=== PATIENT | female | born 1950 | race Hispanic/Latino ===

== ENCOUNTER 2017-03-04 08:57 | Emergency (ER) | payer MEDICARE, OTHER ==
[~2017-03-04] VITALS: Ht 144.8 cm; Wt 70.8 kg
[~2017-03-04 08:57] MED LIST: ALENDRONATE70 MG PO; ALPHAGAN5 ML OP; AMLODIPINE5 MG PO; CEPHALEXIN500 M1 OR; CIPROFLOXACN500 MG PO; EC-81 ASPIRIN81 MG OR; FLUOXETINE10 M2 PO; FLUOXETINE10 M3 PO; FOSAMAX70 MG OR; FOSAMAX70 MG PO; GLUCOMETER; HUMULIN 70/30 SC; HYDROCHLOROT25 MG PO; INSULIN SC; LANCETS SC; LANTUS SOLOSTAR SC; LANTUS100 MG/ML SC; LISINOP/HCTZ1 TA1 PO; LISINOPRIL20 MG PO; LORTAB5 PO; LYRICA100 MG PO; LYRICA50 MG PO; MEDDOSEPAK OR; MEDDOSEPAK PO; METFORMIN500 MG PO; METFORMIN850 MG PO; NEURONTIN100 MG PO; NEURONTIN300 MG OR; NOVOLIN R IJ; PAXIL CR12.5 MG OR; PERCOCET 5/321 COMBO; PREDNISONE10 MG PO; PROZAC40 MG PO; QVAR80 MCG IN; RELION 70/30 SC; RISPERDAL3 MG PO; ROBITUSS13 OR; ROBITUSSIN AC10 ML PO; SIMVASTATIN40 MG PO; SYMBICORT1 AE1 IN; TEST STRIPS SC; TIMOLOL 0.5%5 ML OP; ULTRAM50 MG PO; VENTOLIN HFA IN; XALATAN 0.005%2.5 ML OP; [UNRECOGNIZED DRUG - OTHER]
[2017-03-04] MEDS ORDERED: MEDDOSEPAK PO (09:42)
[2017-03-04] MEDS ORDERED: DOXYCYC MONO100 M2 PO (09:42)
[2017-03-04] MEDS ORDERED: BENADRYL 50MG C50 MG PO (09:42)
[2017-03-04 09:49] VITALS: BP 151/65
== END 2017-03-04 09:58 | disposition home or self-care (01) ==
LOC: ED 08:57
DX: L50.9 Urticaria, unspecified (principal)

== ENCOUNTER 2018-03-22 14:56 | Emergency (ER) | payer MEDICARE, OTHER ==
[~2018-03-22] VITALS: Ht 144.8 cm; Wt 55.0 kg
[~2018-03-22 14:56] MED LIST changes: +BENADRYL 50MG C50 MG PO; +DOXYCYC MONO100 M2 PO; -NOVOLIN R IJ; +NOVOLIN R100 UNIT/M SC
[2018-03-22] MEDS ORDERED: LANTUS100 UNIT/M SC (15:24)
[2018-03-22 15:35] LABS: HEMATOCRIT 35.4 % (37.0-47.0); IMMATURE GRANULOCYTES 0.6 % (0.0-5.0); MEAN CELL VOLUME 85.1 fL CALC (80.0-100.0); MEAN CORPUSCULAR HGB 28.8 pG CALC (26.0-32.0); MEAN CORPUSCULAR HGB CONC 33.9 g/L CALC (32.0-36.0); NEUT# 7.57 thou/uL (2.00-7.15); RED BLOOD COUNT 4.16 mill/uL (4.20-5.60); RED CELL DISTRI WIDTH 13.4 % (11.5-15.5)
[2018-03-22 15:54] LABS: ALBUMIN 3.7 g/dL (3.2-5.0); ALKALINE PHOSPHATASE 70 u/l (38-126); ANION GAP 14 (6-22 (CALC)); BILIRUBIN, TOTAL 0.3 mg/dL (0.0-1.4); BUN 19 mg/dL (8-23); BUN/CREATININE RATIO 17 (12-20 (CALC)); CARBON DIOXIDE 22 mmol/l (22-30); CHLORIDE 105 mmol/l (95-108); CREATININE 1.1 mg/dL (0.5-1.0); GFR 50 ML/MIN (>=60 (CALC)); GFR FOR AFR.AMER. 60 ML/MIN (>=60 (CALC)); POTASSIUM 3.2 mmol/l (3.5-5.1); SGOT/AST 33 u/l (9-36); SGPT/ALT 22 u/l (11-66); SODIUM 138 mmol/l (137-146); TOTAL PROTEIN 6.4 g/dL (6.3-8.2)
[2018-03-22 16:33] LABS: URINE BILIRUBIN - DIPSTICK NEGATIVE (NEGATIVE); URINE BLOOD DIPSTICK SMALL (NEGATIVE); URINE COLOR YELLOW; URINE GLUCOSE - DIPSTICK >=1000 mg/dL (NEGATIVE); URINE KETONE NEGATIVE (NEGATIVE); URINE PROTEIN - DIPSTICK 30 mg/dL (NEG-TRACE); URINE SPECIFIC GRAVITY 1.015; URINE UROBILINOGEN - DIPSTICK 0.2 E.U./dL (0.2)
[2018-03-22 16:40] LABS: URINE CLARITY CLOUDY; URINE LEUK ESTERASE MODERATE (NEGATIVE); URINE NITRITE - DIPSTICK POSITIVE (Negative)
[2018-03-22 16:42] LABS: URINE BACTERIA MODERATE hpf; URINE SQUAMOUS EPITHELIAL CELL FEW EPI/hpf (0-FEW); URINE WBC >100 WBC/hpf (0-5)
[2018-03-22] MEDS ORDERED: BACTRIM DS1 TAB PO (16:50)
[2018-03-22 17:10] VITALS: BP 103/55
== END 2018-03-22 17:10 | disposition home or self-care (01) ==
LOC: ED 14:56 → EDBD 14:56 → ED 15:14
PROVIDERS: Family Medicine
DX: E11.649 Type 2 diabetes mellitus with hypoglycemia without coma (principal); N30.90 Cystitis, unspecified without hematuria; B96.20 Unspecified Escherichia coli [E. coli] as the cause of diseases classified elsewhere; I10 Essential (primary) hypertension; M79.7 Fibromyalgia; E11.40 Type 2 diabetes mellitus with diabetic neuropathy, unspecified; M81.0 Age-related osteoporosis without current pathological fracture; F17.210 Nicotine dependence, cigarettes, uncomplicated; Z79.4 Long term (current) use of insulin; R94.31 Abnormal electrocardiogram [ECG] [EKG]

== ENCOUNTER 2018-03-28 10:48 | Inpatient (IN) | payer MEDICARE, OTHER ==
[~2018-03-28] VITALS: Ht 144.8 cm; Wt 70.0 kg
[~2018-03-28 10:48] MED LIST changes: +BACTRIM DS1 TAB PO; +LANTUS100 UNIT/M SC
[2018-03-28 11:34] LABS: HEMOGLOBIN 13.3 g/dl (12.0-16.0); IMMATURE GRANULOCYTES 0.5 % (0.0-5.0); MEAN CELL VOLUME 84.8 fL CALC (80.0-100.0); MEAN CORPUSCULAR HGB 28.9 pG CALC (26.0-32.0); MEAN CORPUSCULAR HGB CONC 34.1 g/L CALC (32.0-36.0); NEUT# 6.81 thou/uL (2.00-7.15); RED BLOOD COUNT 4.6 mill/uL (4.20-5.60); RED CELL DISTRI WIDTH 13.2 % (11.5-15.5)
[2018-03-28 11:45] LABS: ALBUMIN 4.3 g/dL (3.2-5.0); BILIRUBIN, TOTAL 0.3 mg/dL (0.0-1.4); CREATININE 1.5 mg/dL (0.5-1.0); TOTAL PROTEIN 7.3 g/dL (6.3-8.2)
[2018-03-28 11:50] LABS: POTASSIUM 4.9 mmol/l (3.5-5.1)
[2018-03-28] MEDS ORDERED: ALENDRONATE70 MG PO (11:53)
[2018-03-28] MEDS ORDERED: BENAZEPRIL10 MG PO (11:54)
[2018-03-28] MEDS ORDERED: CARDURA4 MG PO (11:57)
[2018-03-28] MEDS ORDERED: CELEBREX100 M1 PO (11:58)
[2018-03-28] MEDS ORDERED: IPRATROPIU0.5 MG/3 M IN (11:59)
[2018-03-28] MEDS ORDERED: LYRICA25 MG PO (12:00)
[2018-03-28] MEDS ORDERED: MAXZIDE-25MG1 COMBO PO (12:01)
[2018-03-28] MEDS ORDERED: METFORMIN850 MG PO (12:02)
[2018-03-28] MEDS ORDERED: PROAIR HFA108 MCG/AC IN (12:03)
[2018-03-28] MEDS ORDERED: SAPHRIS2.5 MG SL (12:04)
[2018-03-28 14:51] LABS: ETHYL ALCOHOL 0 mg/dl (0-30)
[2018-03-28 17:49] LABS: URINE BILIRUBIN - DIPSTICK NEGATIVE (NEGATIVE); URINE BLOOD DIPSTICK NEGATIVE (NEGATIVE); URINE COLOR YELLOW; URINE GLUCOSE - DIPSTICK >=1000 mg/dL (NEGATIVE); URINE KETONE NEGATIVE (NEGATIVE); URINE PROTEIN - DIPSTICK NEGATIVE (NEG-TRACE); URINE UROBILINOGEN - DIPSTICK 0.2 E.U./dL (0.2)
[2018-03-28 17:50] LABS: URINE CLARITY HAZY; URINE LEUK ESTERASE SMALL (NEGATIVE); URINE NITRITE - DIPSTICK POSITIVE (Negative)
[2018-03-28 17:53] LABS: BARBITURATES NEGATIVE (NEGATIVE); COCAINE NEGATIVE (NEGATIVE); METHADONE NEGATIVE (NEGATIVE); OXCYCODONE NEGATIVE (NEGATIVE); TETRAHYDROCANNABIONOL NEGATIVE (NEGATIVE); TRICYLIC ANTIDEPRESSANTS NEGATIVE (NEGATIVE)
[2018-03-28 17:58] LABS: URINE BACTERIA RARE hpf; URINE RBC 0-2 RBC/hpf (0-5); URINE SQUAMOUS EPITHELIAL CELL FEW EPI/hpf (0-FEW)
[2018-03-28 19:15] VITALS: BP 120/58
[2018-03-29 00:25] VITALS: BP 125/48
[2018-03-29 04:48] VITALS: BP 104/49
[2018-03-29 04:58] LABS: HEMATOCRIT 36.5 % (37.0-47.0); HEMOGLOBIN 12.1 g/dl (12.0-16.0); MEAN CELL VOLUME 86.5 fL CALC (80.0-100.0); MEAN CORPUSCULAR HGB 28.7 pG CALC (26.0-32.0); MEAN CORPUSCULAR HGB CONC 33.2 g/L CALC (32.0-36.0); RED BLOOD COUNT 4.22 mill/uL (4.20-5.60); RED CELL DISTRI WIDTH 13.3 % (11.5-15.5)
[2018-03-29 05:23] LABS: CREATININE 1.2 mg/dL (0.5-1.0); POTASSIUM 4.7 mmol/l (3.5-5.1)
[2018-03-29 10:00] LABS: CHOLESTEROL HDL RATIO 1.9 (<4.4 (CALC)); MAGNESIUM 2.1 mg/dL (1.6-2.3)
[2018-03-29 11:22] VITALS: BP 117/58
[2018-03-29 15:37] VITALS: BP 115/61
[2018-03-29 19:32] VITALS: BP 137/65
[2018-03-30 00:35] VITALS: BP 127/72
[2018-03-30 04:23] VITALS: BP 128/54
[2018-03-30 08:03] VITALS: BP 140/52
[2018-03-30 08:43] LABS: ANION GAP 14 (6-22 (CALC)); BUN 16 mg/dL (8-23); BUN/CREATININE RATIO 20 (12-20 (CALC)); CARBON DIOXIDE 22 mmol/l (22-30); CHLORIDE 109 mmol/l (95-108); CREATININE 0.8 mg/dL (0.5-1.0); GFR > 60 ML/MIN (>=60 (CALC)); GFR FOR AFR.AMER. > 60 ML/MIN (>=60 (CALC)); SODIUM 139 mmol/l (137-146)
[2018-03-30 08:52] LABS: POTASSIUM 5.8 mmol/l (3.5-5.1)
[2018-03-30 12:00] VITALS: BP 129/46
[2018-03-30 15:45] VITALS: BP 138/56
[2018-03-30 20:24] VITALS: BP 144/60
[2018-03-31 00:28] VITALS: BP 113/57
[2018-03-31 04:22] VITALS: BP 147/58
[2018-03-31 05:35] LABS: HEMATOCRIT 41.2 % (37.0-47.0); HEMOGLOBIN 13.9 g/dl (12.0-16.0); IMMATURE GRANULOCYTES 0.9 % (0.0-5.0); MEAN CELL VOLUME 86.4 fL CALC (80.0-100.0); MEAN CORPUSCULAR HGB 29.1 pG CALC (26.0-32.0); MEAN CORPUSCULAR HGB CONC 33.7 g/L CALC (32.0-36.0); NEUT# 4.13 thou/uL (2.00-7.15); RED BLOOD COUNT 4.77 mill/uL (4.20-5.60); RED CELL DISTRI WIDTH 13.2 % (11.5-15.5)
[2018-03-31 05:41] LABS: ANION GAP 15 (6-22 (CALC)); BUN 16 mg/dL (8-23); BUN/CREATININE RATIO 21 (12-20 (CALC)); CARBON DIOXIDE 24 mmol/l (22-30); CHLORIDE 110 mmol/l (95-108); CREATININE 0.8 mg/dL (0.5-1.0); GFR > 60 ML/MIN (>=60 (CALC)); GFR FOR AFR.AMER. > 60 ML/MIN (>=60 (CALC)); SODIUM 143 mmol/l (137-146)
[2018-03-31 05:47] LABS: POTASSIUM 5.6 mmol/l (3.5-5.1)
[2018-03-31 07:40] VITALS: BP 139/43
[2018-03-31] MEDS ORDERED: LEVAQUIN750 MG PO (10:25)
[2018-03-31 11:30] VITALS: BP 131/57
== END 2018-03-31 12:38 | disposition home or self-care (01) | DRG 871 ==
LOC: ED 10:48 → ED-I 17:33 → ED 17:59 → MS2 18:00
PROVIDERS: Emergency Medicine; Nurse Practitioner Family; ADMIT Internal Medicine; ATTEND Internal Medicine
DX: A41.51 Sepsis due to Escherichia coli [E. coli] (principal); G93.41 Metabolic encephalopathy; N39.0 Urinary tract infection, site not specified; N17.9 Acute kidney failure, unspecified; R65.20 Severe sepsis without septic shock; E11.65 Type 2 diabetes mellitus with hyperglycemia; I10 Essential (primary) hypertension; M19.90 Unspecified osteoarthritis, unspecified site; E11.40 Type 2 diabetes mellitus with diabetic neuropathy, unspecified; F17.210 Nicotine dependence, cigarettes, uncomplicated; J44.9 Chronic obstructive pulmonary disease, unspecified; E78.5 Hyperlipidemia, unspecified; F20.9 Schizophrenia, unspecified; M81.0 Age-related osteoporosis without current pathological fracture; B35.4 Tinea corporis; Z79.4 Long term (current) use of insulin; Z91.14 Patient's other noncompliance with medication regimen
CPT/HCPCS: J0692

== ENCOUNTER 2018-06-02 10:16 | Emergency (ER) | payer MEDICARE, OTHER ==
[~2018-06-02] VITALS: Ht 144.8 cm; Wt 59.0 kg
[~2018-06-02 10:16] MED LIST changes: +BENAZEPRIL10 MG PO; +CARDURA4 MG PO; +CELEBREX100 M1 PO; +IPRATROPIU0.5 MG/3 M IN; +LEVAQUIN750 MG PO; +LYRICA25 MG PO; +MAXZIDE-25MG1 COMBO PO; +PROAIR HFA108 MCG/AC IN; +SAPHRIS2.5 MG SL
[2018-06-02 10:57] LABS: IMMATURE GRANULOCYTES 0.6 % (0.0-5.0); MEAN CORPUSCULAR HGB 28.8 pG CALC (26.0-32.0); MEAN CORPUSCULAR HGB CONC 33.8 g/L CALC (32.0-36.0); NEUT# 5.54 thou/uL (2.00-7.15); RED CELL DISTRI WIDTH 12.7 % (11.5-15.5)
[2018-06-02 11:06] LABS: HEMOGLOBIN 11.5 g/dl (12.0-16.0)
[2018-06-02 11:11] LABS: ALKALINE PHOSPHATASE 53 u/l (38-126); BILIRUBIN, TOTAL 0.3 mg/dL (0.0-1.4); BUN 15 mg/dL (8-23); BUN/CREATININE RATIO 18 (12-20 (CALC)); CARBON DIOXIDE 20 mmol/l (22-30); CHLORIDE 111 mmol/l (95-108); CREATININE 0.8 mg/dL (0.5-1.0); GFR > 60 ML/MIN (>=60 (CALC)); GFR FOR AFR.AMER. > 60 ML/MIN (>=60 (CALC)); SGOT/AST 24 u/l (9-36); SODIUM 141 mmol/l (137-146)
[2018-06-02 11:12] LABS: ALBUMIN 3.2 g/dL (3.2-5.0); ANION GAP 13 (6-22 (CALC)); POTASSIUM 3.1 mmol/l (3.5-5.1); TOTAL PROTEIN 5.7 g/dL (6.3-8.2)
[2018-06-02 12:21] LABS: URINE BILIRUBIN - DIPSTICK NEGATIVE (NEGATIVE); URINE BLOOD DIPSTICK NEGATIVE (NEGATIVE); URINE COLOR YELLOW; URINE GLUCOSE - DIPSTICK >=1000 mg/dL (NEGATIVE); URINE KETONE TRACE mg/dL (NEGATIVE); URINE LEUK ESTERASE NEGATIVE (NEGATIVE); URINE NITRITE - DIPSTICK NEGATIVE (Negative); URINE PH 5.5 (4.5-8.0); URINE PROTEIN - DIPSTICK 100 mg/dL (NEG-TRACE); URINE UROBILINOGEN - DIPSTICK 0.2 E.U./dL (0.2)
[2018-06-02 12:43] LABS: URINE CLARITY CLEAR
[2018-06-02 12:47] LABS: URINE MUCUS FEW hpf (NONE-FEW); URINE SQUAMOUS EPITHELIAL CELL FEW EPI/hpf (0-FEW)
[2018-06-02 14:01] VITALS: BP 116/42
== END 2018-06-02 14:14 | disposition home or self-care (01) ==
LOC: ED 10:16
PROVIDERS: Emergency Medicine
DX: R55 Syncope and collapse (principal); M25.562 Pain in left knee; M25.561 Pain in right knee; W18.39XA Other fall on same level, initial encounter; Y93.E8 Activity, other personal hygiene; Y92.002 Bathroom of unspecified non-institutional (private) residence as the place of occurrence of the external cause; I10 Essential (primary) hypertension; E11.9 Type 2 diabetes mellitus without complications; Z79.4 Long term (current) use of insulin; F17.210 Nicotine dependence, cigarettes, uncomplicated

== ENCOUNTER 2019-02-08 17:17 | Emergency (ER) | payer MEDICARE, OTHER ==
[~2019-02-08] VITALS: Ht 144.8 cm; Wt 65.0 kg
[2019-02-08 17:40] LABS: HEMATOCRIT 35.8 % (37.0-47.0); HEMOGLOBIN 11.9 g/dl (12.0-16.0); IMMATURE GRANULOCYTES 0.5 % (0.0-5.0); MEAN CELL VOLUME 84.8 fL CALC (80.0-100.0); MEAN CORPUSCULAR HGB 28.2 pG CALC (26.0-32.0); MEAN CORPUSCULAR HGB CONC 33.2 g/L CALC (32.0-36.0); NEUT# 5.06 thou/uL (2.00-7.15); RED BLOOD COUNT 4.22 mill/uL (4.20-5.60); RED CELL DISTRI WIDTH 13.1 % (11.5-15.5)
[2019-02-08 17:53] LABS: GFR > 60 ML/MIN (>=60 (CALC)); GFR FOR AFR.AMER. > 60 ML/MIN (>=60 (CALC))
[2019-02-08 17:59] LABS: INTERNATIONAL NORMALIZED RATIO 0.9 RATIO (0.7-1.3); PROTHROMBIN TIME 9.8 SECONDS (9.0-12.5)
[2019-02-08 18:54] LABS: URINE BILIRUBIN - DIPSTICK NEGATIVE (NEGATIVE); URINE BLOOD DIPSTICK NEGATIVE (NEGATIVE); URINE COLOR YELLOW; URINE GLUCOSE - DIPSTICK >=1000 mg/dL (NEGATIVE); URINE KETONE NEGATIVE (NEGATIVE); URINE LEUK ESTERASE NEGATIVE (NEGATIVE); URINE NITRITE - DIPSTICK NEGATIVE (Negative); URINE PH 6.5 (4.5-8.0); URINE PROTEIN - DIPSTICK NEGATIVE (NEG-TRACE); URINE SPECIFIC GRAVITY <=1.005; URINE UROBILINOGEN - DIPSTICK 0.2 E.U./dL (0.2)
[2019-02-08 18:55] LABS: BARBITURATES NEGATIVE (NEGATIVE); COCAINE NEGATIVE (NEGATIVE); METHADONE NEGATIVE (NEGATIVE); OXCYCODONE NEGATIVE (NEGATIVE); TETRAHYDROCANNABIONOL NEGATIVE (NEGATIVE); TRICYLIC ANTIDEPRESSANTS NEGATIVE (NEGATIVE)
[2019-02-08 19:43] LABS: ALKALINE PHOSPHATASE 77 u/l (38-126); BILIRUBIN, TOTAL 0.3 mg/dL (0.0-1.4); BUN 23 mg/dL (8-23); BUN/CREATININE RATIO 26 (12-20 (CALC)); CARBON DIOXIDE 24 mmol/l (22-30); CHLORIDE 104 mmol/l (95-108); CREATININE 0.9 mg/dL (0.5-1.0); GFR > 60 ML/MIN (>=60 (CALC)); GFR FOR AFR.AMER. > 60 ML/MIN (>=60 (CALC)); LIPASE 125 u/l (23-300); SGOT/AST 15 u/l (9-36); SODIUM 139 mmol/l (137-146); TOTAL PROTEIN 6.5 g/dL (6.3-8.2)
[2019-02-08 19:46] LABS: ANION GAP 16 (6-22 (CALC)); POTASSIUM 4.7 mmol/l (3.5-5.1)
[2019-02-08 21:45] VITALS: BP 155/47
== END 2019-02-08 21:45 | disposition short-term general hospital (02) ==
LOC: ED 17:17
PROVIDERS: Family Medicine
DX: R56.9 Unspecified convulsions (principal); E11.65 Type 2 diabetes mellitus with hyperglycemia; I10 Essential (primary) hypertension; E11.40 Type 2 diabetes mellitus with diabetic neuropathy, unspecified; F17.200 Nicotine dependence, unspecified, uncomplicated; Z79.4 Long term (current) use of insulin; R41.0 Disorientation, unspecified

== ENCOUNTER 2019-02-26 14:56 | Emergency (ER) | payer MEDICARE, OTHER ==
[~2019-02-26] VITALS: Ht 144.8 cm; Wt 60.0 kg
[2019-02-26 15:19] LABS: HEMATOCRIT 39.7 % (37.0-47.0); HEMOGLOBIN 13.1 g/dl (12.0-16.0); IMMATURE GRANULOCYTES 0.5 % (0.0-5.0); MEAN CELL VOLUME 84.3 fL CALC (80.0-100.0); MEAN CORPUSCULAR HGB 27.8 pG CALC (26.0-32.0); NEUT# 7.04 thou/uL (2.00-7.15); RED BLOOD COUNT 4.71 mill/uL (4.20-5.60); RED CELL DISTRI WIDTH 13.2 % (11.5-15.5)
[2019-02-26 15:36] LABS: ALBUMIN 4.4 g/dL (3.2-5.0); ALKALINE PHOSPHATASE 81 u/l (38-126); BILIRUBIN, TOTAL 0.4 mg/dL (0.0-1.4); BUN 36 mg/dL (8-23); BUN/CREATININE RATIO 27 (12-20 (CALC)); CARBON DIOXIDE 22 mmol/l (22-30); CHLORIDE 107 mmol/l (95-108); CREATININE 1.3 mg/dL (0.5-1.0); GFR 41 ML/MIN (>=60 (CALC)); GFR FOR AFR.AMER. 49 ML/MIN (>=60 (CALC)); SGOT/AST 20 u/l (9-36); SODIUM 140 mmol/l (137-146)
[2019-02-26 15:37] LABS: ANION GAP 16 (6-22 (CALC)); POTASSIUM 5.2 mmol/l (3.5-5.1); TOTAL PROTEIN 7.9 g/dL (6.3-8.2)
[2019-02-26 15:48] LABS: MYOGLOBIN 30 ng/mL (0 - 62)
[2019-02-26] MEDS ORDERED: GABAPENTIN100 MG PO (17:47)
[2019-02-26] MEDS ORDERED: DOXAZOSIN4 MG PO (17:53)
[2019-02-26] MEDS ORDERED: MAXZIDE-2537.5 MG/TA PO (17:54)
[2019-02-26 19:00] VITALS: BP 156/80
[2019-02-26 19:25] LABS: URINE BILIRUBIN - DIPSTICK NEGATIVE (NEGATIVE); URINE BLOOD DIPSTICK NEGATIVE (NEGATIVE); URINE COLOR YELLOW; URINE GLUCOSE - DIPSTICK 100 mg/dL (NEGATIVE); URINE KETONE NEGATIVE (NEGATIVE); URINE LEUK ESTERASE NEGATIVE (NEGATIVE); URINE NITRITE - DIPSTICK NEGATIVE (Negative); URINE PROTEIN - DIPSTICK NEGATIVE (NEG-TRACE); URINE SPECIFIC GRAVITY <=1.005; URINE UROBILINOGEN - DIPSTICK 0.2 E.U./dL (0.2)
== END 2019-02-26 19:32 | disposition short-term general hospital (02) ==
LOC: ED 14:56 → EDBD 14:56 → ED 15:47
PROVIDERS: Emergency Medicine
DX: I63.9 Cerebral infarction, unspecified (principal); R53.1 Weakness; I69.328 Other speech and language deficits following cerebral infarction; R20.0 Anesthesia of skin; F17.200 Nicotine dependence, unspecified, uncomplicated; E11.65 Type 2 diabetes mellitus with hyperglycemia; Z79.4 Long term (current) use of insulin; R41.0 Disorientation, unspecified; I10 Essential (primary) hypertension; M79.7 Fibromyalgia
CPT/HCPCS: Q9967

== ENCOUNTER 2019-07-03 19:15 | Inpatient (IN) | payer MEDICARE, OTHER ==
[~2019-07-03] VITALS: Ht 144.8 cm; Wt 60.0 kg
[~2019-07-03 19:15] MED LIST changes: +DOXAZOSIN4 MG PO; +GABAPENTIN100 MG PO; +MAXZIDE-2537.5 MG/TA PO
--- NOTE | 2019-07-03 19:15 | NUR ---
PT TO ROOM 10 VIA EMS. ACCUCHECK READING OF 'HI'. PT ADVISED SHE TOOK INSULIN SC 10 UNITS JUST PRIOR TO EMS ARRIVAL AT HER HOME.
[2019-07-03 19:57] LABS: HEMATOCRIT 40.5 % (37.0-47.0); HEMOGLOBIN 13.5 g/dl (12.0-16.0); IMMATURE GRANULOCYTES 0.7 % (0.0-5.0); MEAN CELL VOLUME 84.4 fL CALC (80.0-100.0); MEAN CORPUSCULAR HGB 28.1 pG CALC (26.0-32.0); MEAN CORPUSCULAR HGB CONC 33.3 g/L CALC (32.0-36.0); NEUT# 7.43 thou/uL (2.00-7.15); RED BLOOD COUNT 4.8 mill/uL (4.20-5.60); RED CELL DISTRI WIDTH 13.1 % (11.5-15.5)
[2019-07-03 20:14] LABS: URINE BILIRUBIN - DIPSTICK NEGATIVE (NEGATIVE); URINE BLOOD DIPSTICK NEGATIVE (NEGATIVE); URINE COLOR YELLOW; URINE GLUCOSE - DIPSTICK >=1000 mg/dL (NEGATIVE); URINE KETONE NEGATIVE (NEGATIVE); URINE LEUK ESTERASE NEGATIVE (NEGATIVE); URINE NITRITE - DIPSTICK NEGATIVE (Negative); URINE PROTEIN - DIPSTICK TRACE mg/dL (NEG-TRACE); URINE UROBILINOGEN - DIPSTICK 0.2 E.U./dL (0.2)
[2019-07-03 20:17] LABS: ALBUMIN 4.2 g/dL (3.2-5.0); ALKALINE PHOSPHATASE 89 u/l (38-126); BILIRUBIN, TOTAL 0.3 mg/dL (0.0-1.4); BUN 16 mg/dL (8-23); BUN/CREATININE RATIO 21 (12-20 (CALC)); CHLORIDE 97 mmol/l (95-108); CREATININE 0.7 mg/dL (0.5-1.0); GFR > 60 ML/MIN (>=60 (CALC)); GFR FOR AFR.AMER. > 60 ML/MIN (>=60 (CALC)); SGOT/AST 22 u/l (9-36); SODIUM 136 mmol/l (137-146); TOTAL PROTEIN 7.4 g/dL (6.3-8.2)
[2019-07-03 20:27] LABS: ANION GAP 18 (6-22 (CALC)); CARBON DIOXIDE 27 mmol/l (22-30); POTASSIUM 5.5 mmol/l (3.5-5.1)
[2019-07-03 20:28] LABS: MYOGLOBIN 39 ng/mL (0 - 62)
--- NOTE | 2019-07-03 20:35 | NUR ---
ASSIST WITH BEDPAN X2 PT VOIDING WITHOUT DIFFICULTY
--- NOTE | 2019-07-03 20:46 | NUR ---
LEFT UPPER EXTREMITY WEAKNESS NOTED. PHYSICIAN NOTIFIED. PT REPORTS LEFT ARM WEAKNESS BEGAN EARLIER TODAY, HOWEVER SHE NOTICED INCREASED WEAKNESS WHEN SHE WAS SORTING LAUNDRY ABOUT 5 P.M.
--- NOTE | 2019-07-03 20:52 | NUR ---
PHYSICIAN AT BEDSIDE. PT NOW REPORTS THAT LEFT ARM WEAKNESS STARTED 3 DAYS AGO.
--- NOTE | 2019-07-03 22:46 | NUR ---
REPORT GIVEN TO NISSA ON MED/SURG 2. AWAITING ADMISSION ORDERS BEFORE TRANSPORTING PT TO FLOOR. CHARGE NURSE, MELISA, UPDATED.
--- NOTE | 2019-07-03 22:50 | NUR ---
PT DROWSY, EASILY AROUSED. PT UNABLE TO EAT AT THIS TIME DUE TO DROWSINESS
--- NOTE | 2019-07-03 22:52 | NUR ---
SPOKE WITH DR. CADET REGARDING ACCUCHECK. NEW ORDER RECEIVED.
--- NOTE | 2019-07-03 23:50 | NUR ---
Admission Note Report Given to: NISSA Transported by: Wheelchair X Stretcher Transported with: X Nurse Transporter X Patent IV O2 Computer Support Specialist PT TRANSPORTED TO FLOOR BY ROXANNA TANORACLE DISTRIBUTION CONSULTANT
[2019-07-04] VITALS: BP 120/62
--- NOTE | 2019-07-04 01:30 | NUR ---
PATIENT ADMITTED FROM ER VIA STRETCHER WITH NSG ELECTRONIC WARFARE TECHNICAL IN ATTENDANCE. PATIENT IS DROWSY BUT AROUSABLE TO VOICE. MAX ASSIST TO TRANSFER PATIENT TO BED. IV SITE TO LEFT AC-IVF D5NS PATENT AND INFUSING AT 125CC/HR, BED ALARM IN PLACE FOR PATIENT SAFETY. UNABLE TO ORIENT PATIENT TO ROOM AND SURROUNDINGS AT THIS TIME DUE BEING SEDATED. CALL LIGHT IN REACH. WILL CONT TO MONITOR.
[2019-07-04 04:10] VITALS: BP 133/52
--- NOTE | 2019-07-04 04:16 | NUR ---
PATIENT IS BECOMING MORE ALERT BUT STILL DROWSY. IS ABLE TO ANSWER SOME QUESTIONS. ORIENTED TO PERSON PLACE. BS AT THIS TIME IS 116. IVF D5NS PATENT ANDINFUSING VIA LEFT AC SITE AT 125CC/HR. SITE REMAINS HEALTHY. PATIENT ASSISTED OOB TO BR-VOIDING QS YELLOW URINE. ASSISTED BACK TO BED. UNSTEADY ON HER FEET. PATIENT STATES THAT SHE LIVES WITH FAMILY. ORIENTED TO ROOM AND SURROUNDINGS. INSTRUCTED ON USE OF NURSE CALL LIGHT SYSTEM, TV REMOTE AND PHONE. MAY NEED SOMEREINFORCEMENT. PRIMARY LANGUAGE IS LUXEMBOURGER BUT SPEAKS AND UNDERSTANDS DIVEHI. TAKING PO JUICE AT THIS TIME. SAFETY PRECAUTIONS REINFORCED. CALL LIGHT IN REACH. WILL CONT TO MONITOR.
--- NOTE | 2019-07-04 07:00 | NUR ---
RECIEVED REPORT FROM DAY NURSE. PT RESTING IN BED WITH EYES CLOSED. NO S/S OF DISTRESS NOTED. WILL CONNER NUE TO MONITOR.
--- NOTE | 2019-07-04 08:14 | NUR ---
PT RESTING IN THE CHAIR. ASSESMENT COMPLETED AT THIS TIME. PT IS DROWSY DURING MED PASS. NO NEEDS AT THIS TIME. WILL CONTINUE TO MONITOR.
[2019-07-04 08:22] LABS: ANION GAP 11 (6-22 (CALC)); BUN 13 mg/dL (8-23); BUN/CREATININE RATIO 27 (12-20 (CALC)); CARBON DIOXIDE 23 mmol/l (22-30); CHLORIDE 108 mmol/l (95-108); CREATININE 0.5 mg/dL (0.5-1.0); GFR > 60 ML/MIN (>=60 (CALC)); GFR FOR AFR.AMER. > 60 ML/MIN (>=60 (CALC)); SODIUM 138 mmol/l (137-146)
[2019-07-04 08:24] LABS: POTASSIUM 4.3 mmol/l (3.5-5.1)
[2019-07-04 10:14] LABS: CHOLESTEROL HDL RATIO 2.7 (<4.4 (CALC))
[2019-07-04] MEDS ORDERED: TRESIBA FL100 UNIT/M SC (10:43)
[2019-07-04] MEDS ORDERED: NOVOLOG FL100 UNIT/M SC (10:44)
[2019-07-04 10:49] LABS: BARBITURATES NEGATIVE (NEGATIVE); COCAINE NEGATIVE (NEGATIVE); METHADONE NEGATIVE (NEGATIVE); TETRAHYDROCANNABIONOL NEGATIVE (NEGATIVE); TRICYLIC ANTIDEPRESSANTS NEGATIVE (NEGATIVE)
[2019-07-04 10:50] LABS: OXCYCODONE NEGATIVE (NEGATIVE)
[2019-07-04] MEDS ORDERED: SIMBRINZA1 SUS OU (10:53)
--- NOTE | 2019-07-04 12:00 | NUR ---
PT RESTING IN CHAIR. FAMILY AT BEDSIDE. NO NEEDS AT THIS TIME. WILL CONTINUE TO MONITOR.
[2019-07-04 15:20] VITALS: BP 106/50
--- NOTE | 2019-07-04 16:00 | NUR ---
PT RESTING IN BED. FAMILY AT BEDSIDE. NO NEEDS. WILL CONTINUE TO MONITOR
[2019-07-04 19:05] VITALS: BP 131/45
--- NOTE | 2019-07-04 19:13 | NUR ---
REPORT RECEIVED FROM JACKSON MANDEL. PT RESTING IN BED. NO S/S OF DISTRESS AT THIS TIME. SAFEYT PRECAUTIONS IN PLACE. WILL CONTINUE TO MONITOR.
--- NOTE | 2019-07-04 21:55 | NUR ---
PT RESTING IN BED WITH EYES CLOSED. RESPIRATIONS EVEN AND UNLABORED ON RA. LUNGS SOUND CLEAR. PEDAL PULSES STRONG. PT DENIES ANY PAIN OR DISCOMFORT AT THIS TIME. SAFETY PRECAUTIONS IN PLACE. WILL CONTINUE TO MONITOR.
--- NOTE | 2019-07-05 00:45 | NUR ---
PT RESTING IN BED WITH EYES CLOSED. RES[PIRATIONS EVEN AND UNLABORED ON RA. NO S/S OF DISTRESS AT THIS TIME. WILL CONTINUE TO MONITOR.
[2019-07-05 03:42] VITALS: BP 128/48
--- NOTE | 2019-07-05 05:02 | NUR ---
PT RESTING IN BED. NO S/S OF DISTRESS AT THIS TIME. RESPIRATIONS EVEN AND UNLABORED ON RA. WILL CONTINUE TO MONITOR.
[2019-07-05 05:37] LABS: HEMATOCRIT 39.2 % (37.0-47.0); HEMOGLOBIN 12.8 g/dl (12.0-16.0); IMMATURE GRANULOCYTES 0.8 % (0.0-5.0); MEAN CELL VOLUME 86.2 fL CALC (80.0-100.0); MEAN CORPUSCULAR HGB 28.1 pG CALC (26.0-32.0); MEAN CORPUSCULAR HGB CONC 32.7 g/L CALC (32.0-36.0); NEUT# 5.01 thou/uL (2.00-7.15); RED BLOOD COUNT 4.55 mill/uL (4.20-5.60); RED CELL DISTRI WIDTH 13.2 % (11.5-15.5)
[2019-07-05 06:01] LABS: ANION GAP 10 (6-22 (CALC)); BUN 11 mg/dL (8-23); BUN/CREATININE RATIO 17 (12-20 (CALC)); CARBON DIOXIDE 25 mmol/l (22-30); CHLORIDE 107 mmol/l (95-108); CREATININE 0.6 mg/dL (0.5-1.0); GFR > 60 ML/MIN (>=60 (CALC)); GFR FOR AFR.AMER. > 60 ML/MIN (>=60 (CALC)); MAGNESIUM 1.9 mg/dL (1.6-2.3); POTASSIUM 4.4 mmol/l (3.5-5.1); SODIUM 137 mmol/l (137-146)
--- NOTE | 2019-07-05 07:00 | NUR ---
RECIEVED REPORT FROM NIGHT NURSE. PT RESTING QUIETLY IN BED WITH EYES CLOSED. NO S/S OF DISTRESS NOTED.
--- NOTE | 2019-07-05 08:03 | NUR ---
PT RESTING IN BED WITH EYES CLOSED. NO S/S OF DISTRESS NOTED. WAKES TO VERBAL STIMULI. ASSESMENT COMPLETED AT THIS TIME. IV INFUSING WELL. FAMILY AT BEDSIDE. NO NEEDS AT THIS TIME. CALL WALDROP IN REACH. WILL CONTINUE TO MONITOR.
[2019-07-05 10:25] VITALS: BP 121/64
[2019-07-05] MEDS ORDERED: NOVOLOG FL100 UNIT/M SC (11:35)
[2019-07-05] MEDS ORDERED: BENAZEPRIL40 M1 PO (11:35)
[2019-07-05] MEDS ORDERED: TRESIBA FL100 UNIT/M SC (11:35)
--- NOTE | 2019-07-05 14:04 | NUR ---
PT DC VIA WHEELCHAIR IN STABLE CONDITION WITH VOLUNTEER AND FAMILY.
== END 2019-07-05 14:04 | disposition home or self-care (01) | DRG 639 ==
LOC: ED 19:15 → ED-I 21:25 → ED 21:27 → MS2 21:28
PROVIDERS: Family Medicine; Nurse Practitioner Family; ADMIT Internal Medicine; ATTEND Internal Medicine
DX: E11.65 Type 2 diabetes mellitus with hyperglycemia (principal); I16.0 Hypertensive urgency; I10 Essential (primary) hypertension; E11.40 Type 2 diabetes mellitus with diabetic neuropathy, unspecified; J43.9 Emphysema, unspecified; E78.5 Hyperlipidemia, unspecified; E87.5 Hyperkalemia; F20.9 Schizophrenia, unspecified; F32.9 Major depressive disorder, single episode, unspecified; M81.0 Age-related osteoporosis without current pathological fracture; F17.200 Nicotine dependence, unspecified, uncomplicated; F15.90 Other stimulant use, unspecified, uncomplicated; M19.90 Unspecified osteoarthritis, unspecified site; T50.916A Underdosing of multiple unspecified drugs, medicaments and biological substances, initial encounter; Z91.120 Patient's intentional underdosing of medication regimen due to financial hardship; Z79.4 Long term (current) use of insulin; Z86.73 Personal history of transient ischemic attack (TIA), and cerebral infarction without residual deficits; Z91.11 Patient's noncompliance with dietary regimen
CPT/HCPCS: J1650; J2060

== ENCOUNTER 2019-07-23 17:36 | Observation (INO) | payer MEDICARE, OTHER ==
[~2019-07-23] VITALS: Ht 149.9 cm; Wt 51.2 kg
[~2019-07-23 17:36] MED LIST changes: +BENAZEPRIL40 M1 PO; +NOVOLOG FL100 UNIT/M SC; +SIMBRINZA1 SUS OU; +TRESIBA FL100 UNIT/M SC
[2019-07-23 18:42] LABS: HEMOGLOBIN 12.7 g/dl (12.0-16.0); IMMATURE GRANULOCYTES 1.3 % (0.0-5.0); MEAN CORPUSCULAR HGB 27.7 pG CALC (26.0-32.0); MEAN CORPUSCULAR HGB CONC 33.4 g/L CALC (32.0-36.0); NEUT# 20.9 thou/uL (2.00-7.15); RED BLOOD COUNT 4.58 mill/uL (4.20-5.60); RED CELL DISTRI WIDTH 12.7 % (11.5-15.5)
[2019-07-23 18:56] LABS: ACT PARTIAL THROMBO TIME 29.4 SECONDS (20.0-32.5); INTERNATIONAL NORMALIZED RATIO 0.9 RATIO (0.7-1.3); PROTHROMBIN TIME 9.8 SECONDS (9.0-12.5)
[2019-07-23 19:05] LABS: ALBUMIN 4.3 g/dL (3.2-5.0); ALKALINE PHOSPHATASE 131 u/l (38-126); ANION GAP 17 (6-22 (CALC)); BILIRUBIN, TOTAL 0.4 mg/dL (0.0-1.4); BUN 16 mg/dL (8-23); BUN/CREATININE RATIO 20 (12-20 (CALC)); CARBON DIOXIDE 27 mmol/l (22-30); CPK 35 u/l (30-165); CREATININE 0.8 mg/dL (0.5-1.0); ETHYL ALCOHOL 0 mg/dl (0-30); GFR > 60 ML/MIN (>=60 (CALC)); GFR FOR AFR.AMER. > 60 ML/MIN (>=60 (CALC)); MAGNESIUM 2.2 mg/dL (1.6-2.3); POTASSIUM 4.3 mmol/l (3.5-5.1); SGOT/AST 19 u/l (9-36); SODIUM 133 mmol/l (137-146); TOTAL PROTEIN 8.3 g/dL (6.3-8.2)
[2019-07-23 19:12] LABS: CHLORIDE 93 mmol/l (95-108)
[2019-07-23 21:00] LABS: URINE BILIRUBIN - DIPSTICK NEGATIVE (NEGATIVE); URINE BLOOD DIPSTICK TRACE-INTACT (NEGATIVE); URINE COLOR YELLOW; URINE GLUCOSE - DIPSTICK >=1000 mg/dL (NEGATIVE); URINE KETONE NEGATIVE (NEGATIVE); URINE LEUK ESTERASE NEGATIVE (NEGATIVE); URINE NITRITE - DIPSTICK NEGATIVE (Negative); URINE PROTEIN - DIPSTICK 30 mg/dL (NEG-TRACE); URINE UROBILINOGEN - DIPSTICK 0.2 E.U./dL (0.2)
[2019-07-23 21:02] LABS: URINE RBC 0-2 RBC/hpf (0-5); URINE SQUAMOUS EPITHELIAL CELL FEW EPI/hpf (0-FEW); URINE WBC 0-2 WBC/hpf (0-5)
[2019-07-23 21:03] LABS: BARBITURATES NEGATIVE (NEGATIVE); COCAINE NEGATIVE (NEGATIVE); METHADONE NEGATIVE (NEGATIVE); OXCYCODONE NEGATIVE (NEGATIVE); TETRAHYDROCANNABIONOL NEGATIVE (NEGATIVE); TRICYLIC ANTIDEPRESSANTS NEGATIVE (NEGATIVE)
[2019-07-23 23:05] VITALS: BP 116/58
[2019-07-24 03:33] VITALS: BP 154/61
[2019-07-24 05:59] LABS: HEMATOCRIT 38.3 % (37.0-47.0); HEMOGLOBIN 12.5 g/dl (12.0-16.0); IMMATURE GRANULOCYTES 1.1 % (0.0-5.0); MEAN CELL VOLUME 84.5 fL CALC (80.0-100.0); MEAN CORPUSCULAR HGB 27.6 pG CALC (26.0-32.0); MEAN CORPUSCULAR HGB CONC 32.6 g/L CALC (32.0-36.0); NEUT# 16.75 thou/uL (2.00-7.15); RED BLOOD COUNT 4.53 mill/uL (4.20-5.60); RED CELL DISTRI WIDTH 12.8 % (11.5-15.5)
[2019-07-24 08:00] VITALS: BP 154/59
[2019-07-24 09:40] VITALS: BP 125/75
== END 2019-07-24 13:29 | disposition home or self-care (01) ==
LOC: ED 17:36 → ED-I 21:08 → ED 21:17 → MS2 21:18 → UNDODEPER 07-24 04:07 → MS2 07-24 13:29
PROVIDERS: ADMIT Internal Medicine; ATTEND Internal Medicine
DX: D72.829 Elevated white blood cell count, unspecified (principal); E11.42 Type 2 diabetes mellitus with diabetic polyneuropathy; I16.0 Hypertensive urgency; I10 Essential (primary) hypertension; E11.65 Type 2 diabetes mellitus with hyperglycemia; E78.5 Hyperlipidemia, unspecified; F32.9 Major depressive disorder, single episode, unspecified; F20.9 Schizophrenia, unspecified; M81.0 Age-related osteoporosis without current pathological fracture; M19.90 Unspecified osteoarthritis, unspecified site; F19.10 Other psychoactive substance abuse, uncomplicated; F17.210 Nicotine dependence, cigarettes, uncomplicated; Z86.73 Personal history of transient ischemic attack (TIA), and cerebral infarction without residual deficits; Z79.4 Long term (current) use of insulin; Z91.19 Patient's noncompliance with other medical treatment and regimen
CPT/HCPCS: G0378

== ENCOUNTER 2019-09-26 | Emergency (ER) | payer MEDICARE, OTHER ==
[2019-09-26 17:34] LABS: URINE BILIRUBIN - DIPSTICK NEGATIVE (NEGATIVE); URINE BLOOD DIPSTICK SMALL (NEGATIVE); URINE COLOR YELLOW; URINE GLUCOSE - DIPSTICK >=1000 mg/dL (NEGATIVE); URINE KETONE NEGATIVE (NEGATIVE); URINE LEUK ESTERASE NEGATIVE (NEGATIVE); URINE NITRITE - DIPSTICK NEGATIVE (Negative); URINE PH 5.5 (4.5-8.0); URINE PROTEIN - DIPSTICK 100 mg/dL (NEG-TRACE); URINE UROBILINOGEN - DIPSTICK 0.2 E.U./dL (0.2)
[2019-09-26 17:37] LABS: HEMATOCRIT 35.8 % (37.0-47.0); HEMOGLOBIN 12.3 g/dl (12.0-16.0); IMMATURE GRANULOCYTES 2.9 % (0.0-5.0); MEAN CELL VOLUME 81.2 fL CALC (80.0-100.0); MEAN CORPUSCULAR HGB 27.9 pG CALC (26.0-32.0); MEAN CORPUSCULAR HGB CONC 34.4 g/L CALC (32.0-36.0); PLATELET COUNT 448 thou/uL (130-400); RED BLOOD COUNT 4.41 mill/uL (4.20-5.60); RED CELL DISTRI WIDTH 13.2 % (11.5-15.5)
[2019-09-26 17:38] LABS: URINE SQUAMOUS EPITHELIAL CELL FEW EPI/hpf (0-FEW); URINE WBC 0-2 WBC/hpf (0-5)
[2019-09-26 18:00] LABS: BAND 5 % (0-8)
[2019-09-26 18:02] LABS: TOXIC GRANULATION FEW; VACULATED NEUTROPHILS FEW
[2019-09-26 18:03] LABS: BILIRUBIN, TOTAL 0.5 mg/dL (0.0-1.4); BUN 26 mg/dL (8-23); BUN/CREATININE RATIO 41 (12-20 (CALC)); CARBON DIOXIDE 23 mmol/l (22-30); CHLORIDE 88 mmol/l (95-108); CREATININE 0.6 mg/dL (0.5-1.0); GFR > 60 ML/MIN (>=60 (CALC)); GFR FOR AFR.AMER. > 60 ML/MIN (>=60 (CALC)); MANUAL DIFFERENTIAL YES; POTASSIUM 4.8 mmol/l (3.5-5.1)
[2019-09-26 18:14] LABS: ALBUMIN 3.2 g/dL (3.2-5.0); ALKALINE PHOSPHATASE 302 u/l (38-126); ANION GAP 19 (6-22 (CALC)); SGOT/AST 93 u/l (9-36); SODIUM 125 mmol/l (137-146); TOTAL PROTEIN 6.5 g/dL (6.3-8.2)
[2019-09-26 18:19] LABS: AMYLASE 82 u/l (30-110); LIPASE 349 u/l (23-300)
[2019-09-26] MEDS ORDERED: LEVAQUIN750 MG PO (20:21)
== END 2019-09-26 20:45 | disposition home or self-care (01) ==
PROVIDERS: Emergency Medicine
DX: J44.1 Chronic obstructive pulmonary disease with (acute) exacerbation (principal); J44.0 Chronic obstructive pulmonary disease with (acute) lower respiratory infection; J18.9 Pneumonia, unspecified organism; R10.12 Left upper quadrant pain; R10.11 Right upper quadrant pain; E11.65 Type 2 diabetes mellitus with hyperglycemia; I10 Essential (primary) hypertension; E11.40 Type 2 diabetes mellitus with diabetic neuropathy, unspecified; F17.200 Nicotine dependence, unspecified, uncomplicated; Z86.73 Personal history of transient ischemic attack (TIA), and cerebral infarction without residual deficits; Z79.4 Long term (current) use of insulin
CPT/HCPCS: Q9967

== ENCOUNTER 2019-09-28 | Emergency (ER) | payer MEDICARE, OTHER ==
[2019-09-28] MEDS ORDERED: MUPIROCIN21 TOP (15:21)
[2019-09-28 15:58] LABS: HEMATOCRIT 34.9 % (37.0-47.0); HEMOGLOBIN 11.3 g/dl (12.0-16.0); MEAN CELL VOLUME 84.3 fL CALC (80.0-100.0); MEAN CORPUSCULAR HGB 27.3 pG CALC (26.0-32.0); MEAN CORPUSCULAR HGB CONC 32.4 g/L CALC (32.0-36.0); NEUT# 13.66 thou/uL (2.00-7.15); RED BLOOD COUNT 4.14 mill/uL (4.20-5.60); RED CELL DISTRI WIDTH 13.9 % (11.5-15.5)
[2019-09-28 16:06] LABS: GFR > 60 ML/MIN (>=60 (CALC)); GFR FOR AFR.AMER. > 60 ML/MIN (>=60 (CALC))
[2019-09-28 16:18] LABS: PROTHROMBIN TIME 10.5 SECONDS (9.0-12.5)
[2019-09-28 16:23] LABS: ALKALINE PHOSPHATASE 234 u/l (38-126); ANION GAP 22 (6-22 (CALC)); BILIRUBIN, TOTAL 0.6 mg/dL (0.0-1.4); BUN 31 mg/dL (8-23); BUN/CREATININE RATIO 36 (12-20 (CALC)); CARBON DIOXIDE 21 mmol/l (22-30); CHLORIDE 88 mmol/l (95-108); CREATININE 0.9 mg/dL (0.5-1.0); GFR > 60 ML/MIN (>=60 (CALC)); GFR FOR AFR.AMER. > 60 ML/MIN (>=60 (CALC)); SGOT/AST 28 u/l (9-36); SODIUM 126 mmol/l (137-146); TOTAL PROTEIN 6.3 g/dL (6.3-8.2)
[2019-09-28 16:25] LABS: IMMATURE GRANULOCYTES 8.5 % (0.0-5.0)
[2019-09-28 16:29] LABS: POTASSIUM 5.4 mmol/l (3.5-5.1)
== END 2019-09-28 18:30 | disposition short-term general hospital (02) ==
PROVIDERS: Family Medicine
DX: I63.9 Cerebral infarction, unspecified (principal); G83.24 Monoplegia of upper limb affecting left nondominant side; R29.703 NIHSS score 3; E11.10 Type 2 diabetes mellitus with ketoacidosis without coma; I10 Essential (primary) hypertension; E11.40 Type 2 diabetes mellitus with diabetic neuropathy, unspecified; F17.210 Nicotine dependence, cigarettes, uncomplicated; Z79.4 Long term (current) use of insulin

== ENCOUNTER 2020-04-04 17:59 | Inpatient (IN) | payer MEDICARE, MEDICAID ==
[~2020-04-04] VITALS: Ht 149.9 cm; Wt 50.0 kg
[~2020-04-04 17:59] MED LIST changes: +MUPIROCIN21 TOP
--- NOTE | 2020-04-04 18:00 | NUR ---
PT TO ROOM 13 VIA EMS.
--- NOTE | 2020-04-04 18:23 | NUR ---
PT AMB TO BR WITH STEADY GAIT
[2020-04-04 18:42] LABS: HEMATOCRIT 33.3 % (37.0-47.0); HEMOGLOBIN 10.7 g/dl (12.0-16.0); IMMATURE GRANULOCYTES 2.9 % (0.0-5.0); MEAN CELL VOLUME 83.7 fL CALC (80.0-100.0); MEAN CORPUSCULAR HGB 26.9 pG CALC (26.0-32.0); MEAN CORPUSCULAR HGB CONC 32.1 g/dL CAL (32.0-36.0); RED BLOOD COUNT 3.98 mill/uL (4.20-5.60); RED CELL DISTRI WIDTH 13.2 % (11.5-15.5)
--- NOTE | 2020-04-04 18:57 | NUR ---
REPORT GIVEN TO BIGG HYMAN
[2020-04-04 19:02] LABS: ALBUMIN 3.4 g/dL (3.2-5.0); ALKALINE PHOSPHATASE 146 u/l (38-126); BUN 21 mg/dL (8-23); BUN/CREATININE RATIO 26 (12-20 (CALC)); CHLORIDE 94 mmol/l (95-108); CREATININE 0.8 mg/dL (0.5-1.0); GFR > 60 ML/MIN (>=60 (CALC)); GFR FOR AFR.AMER. > 60 ML/MIN (>=60 (CALC)); POTASSIUM 4.7 mmol/l (3.5-5.1); SGOT/AST 15 u/l (9-36); SODIUM 130 mmol/l (137-146); TOTAL PROTEIN 6.1 g/dL (6.3-8.2)
--- NOTE | 2020-04-04 19:08 | NUR ---
PT TO CT. NAD. ARAUZ PAUSED.
[2020-04-04 19:19] LABS: ANION GAP 15 (6-22 (CALC)); BILIRUBIN, TOTAL 0.3 mg/dL (0.0-1.4); CARBON DIOXIDE 26 mmol/l (22-30)
--- NOTE | 2020-04-04 19:30 | NUR ---
PT RETURNED FROM CT. UP TO BR TO VOID. RECONNECTED TO EQUIP AND IV ANTIBIOTICS. VSS.
--- NOTE | 2020-04-04 20:30 | NUR ---
DR EXPLAINED ADMISSION TO PT. PT ADVISED OF ICU ADMISSION DO TO ELEVATED BS. ANTIBIOTICS INFUSING. SECOND LINE STARTED. BS CHECKED HIGH. INSULING PUSH GIVEN AND THEN DRIP STARTED. EKG DONE. PT MEDICATED FOR PAIN. LIGHTS DIMMED AND PT MADE COMFORTABLE.
--- NOTE | 2020-04-04 20:46 | NUR ---
ATTEMPTED TO CALL REPORT. NURSE WILL CALL BACK.
[2020-04-04 21:35] LABS: URINE BILIRUBIN - DIPSTICK NEGATIVE (NEGATIVE); URINE BLOOD DIPSTICK NEGATIVE (NEGATIVE); URINE CLARITY CLEAR; URINE COLOR YELLOW; URINE GLUCOSE - DIPSTICK >=1000 mg/dL (NEGATIVE); URINE KETONE TRACE mg/dL (NEGATIVE); URINE LEUK ESTERASE NEGATIVE (Negative); URINE NITRITE - DIPSTICK NEGATIVE (Negative); URINE PH 6.5 (4.5-8.0); URINE PROTEIN - DIPSTICK NEGATIVE (NEG-TRACE); URINE UROBILINOGEN - DIPSTICK 0.2 E.U./dL (0.2)
--- NOTE | 2020-04-04 22:00 | NUR ---
REPORT TO DEMETRIA FOWLER.
--- NOTE | 2020-04-04 22:10 | NUR ---
PT UP TO BR TO VOID.
--- NOTE | 2020-04-04 22:12 | NUR ---
TO FLOOR VIA STRETCHER WITH PORTABLE MONITOR. IV INSULIN/PUMP. PT AMBULATORY TO BED. PT HAS MASK ON FOR COVID PRECAUTIONS.
[2020-04-04 22:15] VITALS: BP 153/48
[2020-04-04 22:30] VITALS: BP 140/52
--- NOTE | 2020-04-04 22:39 | NUR ---
-PT. ARRIVED TP THE FLOOR @2219 ON INSUIN GTT AT 5UNITS/HR X2 IVS ITES TO RIGHT ARM INTACT. PT. ABLE TO AMBULATE TO BED WITH STEADY GAIT. ORIENTED TO CALL LIGHT, ROOM, AND POC; VERBALIZES UNDERSTANDING. X5 AREAS NOTED TO RIGHT SIDE OF HEAD PER ER REPORT THEY BELIEVE IT TO BE BOTES FROM NANCIE FLIES AND APPEARS TO BE LARVA(PHOTO OBTAINED AND PLACED INCHART). BONNET PLACED ON PT'S HEAD. PT. REPORTS ABOUT A WEEK AGO SHE WAS OUTSIDE AND FELT SOMETHING BITING HER HEAD, BUT NEVER SAW WHAT IT WAS, AND NOW REPORTS SHE FEELS MOVEMENT TO THOSE AREAS. PT. REPORTS SHE NORMALLY TAKES HER BS MEDS, BUT DID NOT TAKE IT TODAY AND DOES NOT RECALL HER MEDS AND WAS INFORMED TO HAVE SOMEONE BRING IN HOME MEDS OR TO BEING A LIST OF THEM. BS [address] LUNDBERG, PER STOP INSULIN GTT AND GIVE ONE TIME DOSE OF LEVEMIR. GTT STOPPED AND AWAITING LEVEMIR TO BE PROFILED. MEDICATED FOR SLEEPLESSNESS AND PAIN TO HEAD; WILL REASSESS. DR. LUNDBERG; PER
[2020-04-04 22:45] VITALS: BP 140/52
[2020-04-04 23:00] VITALS: BP 150/54
[2020-04-04 23:30] VITALS: BP 147/58
[2020-04-05] VITALS (14 sets, daily range): BP systolic 131–175; BP diastolic 44–64
--- NOTE | 2020-04-05 00:29 | NUR ---
PT. RESTING IN BED WITH EYES CLOSED. NO DISTRESS NOTED. CALL LIGHT IS IN REACH.
--- NOTE | 2020-04-05 03:44 | NUR ---
RESTING IN BED WITH EYES CLOSED. NO DISTRESS NOTED. BONNET REMAINS IN PLACE. CALL LIGHT IS IN REACH.
--- NOTE | 2020-04-05 04:38 | NUR ---
PT. C/O VALENZUELA; MEDICATED WITH ORDERED PRN TYLENOL; WILL REASSESS.
[2020-04-05 05:27] LABS: HEMATOCRIT 30.1 % (37.0-47.0); HEMOGLOBIN 9.7 g/dl (12.0-16.0); MEAN CELL VOLUME 85.3 fL CALC (80.0-100.0); MEAN CORPUSCULAR HGB 27.5 pG CALC (26.0-32.0); MEAN CORPUSCULAR HGB CONC 32.2 g/dL CAL (32.0-36.0); RED BLOOD COUNT 3.53 mill/uL (4.20-5.60); RED CELL DISTRI WIDTH 13.2 % (11.5-15.5)
[2020-04-05 05:51] LABS: PLATELET COUNT 568 thou/uL (130-400)
[2020-04-05 05:59] LABS: ANION GAP 10 (6-22 (CALC)); BUN 19 mg/dL (8-23); BUN/CREATININE RATIO 29 (12-20 (CALC)); CARBON DIOXIDE 27 mmol/l (22-30); CHLORIDE 101 mmol/l (95-108); CREATININE 0.6 mg/dL (0.5-1.0); GFR > 60 ML/MIN (>=60 (CALC)); GFR FOR AFR.AMER. > 60 ML/MIN (>=60 (CALC)); POTASSIUM 4.2 mmol/l (3.5-5.1); SODIUM 134 mmol/l (137-146)
--- NOTE | 2020-04-05 06:00 | NUR ---
NOTIFIED DR. LUNDBERG OF ELEVATED B/P 169/53 WITH HR 74; NEW ORDERS RECEIVED AND TO BE CARRIED OUT.
--- NOTE | 2020-04-05 06:25 | NUR ---
REASSESSED B/P AND WNL; NO NEED TO ADMINISTER APRESOLINE.
--- NOTE | 2020-04-05 07:10 | NUR ---
pt resting in bed with eyes closed; no apparent distress noted; easily aroused; assessment completed at this time; pt alert and oriented; admits to pain rating 9/10 to head area; no n/v noted; resp even and unlabored; lungs clear; skin color wnl; ra; hr reg; strong pulses; no edema noted; sr on monitor; abd soft with bs present; no bm noted per narrative writer; pt admits to voiding without complication; no urine to inspect at this time; bsc; #20 to lac patent with ivf infusing without complication; #20 lfa saline locked; no redness or edema noted at site; multiple open areas noted to right scalp and mid center scalp with swelling and yellow discharge; no insects/lava noted at current; plan of care/ meds explained; call light within reach; will continue to monitor
--- NOTE | 2020-04-05 08:15 | NUR ---
awake in bed; pt with complaints of pain to head; no other apparent distress noted; sr on monitor; iv intact and patent; Dr Avelar notified of pt complaints; MD will be in shortly to assess pt
--- NOTE | 2020-04-05 09:20 | NUR ---
Dr Avelar present at bedside to assess pt and discuss plan of care; scalp/ head wounds assessed per MD; wounds irrigated with saline and clean dressing applied; thick yellow drainage noted to wounds; Dr Osborne to be consulted; will continue to monitor
--- NOTE | 2020-04-05 09:58 | NUR ---
Dr Osborne informed of consult;
--- NOTE | 2020-04-05 10:04 | NUR ---
pt awake in bed; no apparent distress noted; Incision and Drainage explained; consent obtained; iv intact and patent; sr on monitor; call light within reach; will continue to monitor
--- NOTE | 2020-04-05 10:20 | NUR ---
Dr Osborne present at bedside to assess pt and discuss plan of care; pt will go to OR tomorrow 03/27/20 for I&D of right scalp/head abscesses; will continue to monitor
--- NOTE | 2020-04-05 12:08 | NUR ---
awake in bed eating lunch; no apparent distress noted; iv intact and patent; no redness or edema noted at site; sr on monitor; dressing cdi to head; call light within reach; will continue to monitor
--- NOTE | 2020-04-05 13:04 | NUR ---
assisted to bsc; voiding without complication; will continue to monitor
--- NOTE | 2020-04-05 14:53 | NUR ---
S: SARATH JUAREZ is a 69 F who presents with ABCESS. She has a history of DM,HTN. All medications in patient's chart were reviewed. O: W 50kg, HT 4'11'', Scr=1,CrCl= 37ml/min> A: Blood culture <is pending/show> which is sensitive to <>. P: Patient is on ZOSYN 3.375G Q6H . Vancomycin ordered for pharmacy to dose. Start Vancomycin 750MG IV Q24H. Vancomycin trough is drawn before the 4th dose on 04/07/20 @ 1930. Vancomycin goal trough is between <10-15 mcg/ml>. Pharmacy will follow and or advise on antibiotics use as needed.
--- NOTE | 2020-04-05 16:30 | NUR ---
awake in bed; no apparent distress noted; iv intact and patent; no redness or edema noted at site; dressing cdi to head; sr on monitor; offers no complaints; call light within reach; will continue to monitor
--- NOTE | 2020-04-05 18:16 | NUR ---
awake in bed; no apparent distress noted; iv intact and patent; no redness or edema noted at site; sr on monitor; call light within reach
--- NOTE | 2020-04-05 19:00 | NUR ---
Report received from BIGG Anthony. PT is resting in bed, no signs or symptoms of distress. Safety precautions in place, will continue to monitor.
--- NOTE | 2020-04-05 20:00 | NUR ---
PT RESTING IN BED, ALERT AND ORIENTED. RESPIRATIONS ARE EVEN AND UNLABORED ON RA. LUNGS SOUND CLEAR. PEDAL PULSES ARE STRONG. PT REPORTS HAVING MILD DISCOMFORT IN HER SCALP, PT DENIES NEEDING ANYTHING AT THIS TIME. SAFETY PRECAUTIONS IN PLACE. WILL CONITUE TO MONITOR.
--- NOTE | 2020-04-05 22:35 | NUR ---
PT RESTING IN BED, DRESSING TO P HEAD SOILED, OLD DRESSING REMOVED, ABSCESSES HAS PURULENT DRAINAGE, NO SMELL NOTED. CLEANED WITH SALINE, NEW DRESSING APPLIED, PT TOLERATED WELL. SAFETY PRECAUTIONS IN PLACE. WILL CONTINUE TO MONITOR.
[2020-04-06] VITALS (28 sets, daily range): BP systolic 108–185; BP diastolic 43–86
--- NOTE | 2020-04-06 02:00 | NUR ---
PT RESTING IN BED, NO S/S OF DISTRESS AT THIS TIME.
--- NOTE | 2020-04-06 03:58 | NUR ---
PT RESTING IN BED, NO S/S OF DISTRESS AT THIS TIME
[2020-04-06 05:47] LABS: HEMATOCRIT 29.6 % (37.0-47.0); HEMOGLOBIN 9.2 g/dl (12.0-16.0); MEAN CELL VOLUME 87.6 fL CALC (80.0-100.0); MEAN CORPUSCULAR HGB 27.2 pG CALC (26.0-32.0); MEAN CORPUSCULAR HGB CONC 31.1 g/dL CAL (32.0-36.0); RED BLOOD COUNT 3.38 mill/uL (4.20-5.60); RED CELL DISTRI WIDTH 13.9 % (11.5-15.5)
[2020-04-06 06:02] LABS: ANION GAP 9 (6-22 (CALC)); BUN 15 mg/dL (8-23); BUN/CREATININE RATIO 26 (12-20 (CALC)); CARBON DIOXIDE 24 mmol/l (22-30); CHLORIDE 107 mmol/l (95-108); CREATININE 0.6 mg/dL (0.5-1.0); GFR > 60 ML/MIN (>=60 (CALC)); GFR FOR AFR.AMER. > 60 ML/MIN (>=60 (CALC)); POTASSIUM 4.1 mmol/l (3.5-5.1); SODIUM 136 mmol/l (137-146)
--- NOTE | 2020-04-06 07:25 | NUR ---
PATIENT TRANSPORTED VIA STRETCHER DOWN TO OR FOR I&D.
--- NOTE | 2020-04-06 10:50 | NUR ---
PATIENT RETURNED FROM OR. IV INFUSING WITH BOLUS OF FLUIDS WITHOUT COMPLICATIONS. ATTACHED TO MONITOR. VITALS STABLE AT THIS TIME. CALL LIGHT WITHIN REACH, BED IN LOW POSITION. REPORT RECEIVED FROM NURSE SHIRLEY. PT BP WAS INITIALLY HIGH PRIOR TO SURGERY, THEN HYPOTENSIVE AFTER. ADVISED PT IS NOT TO RECEIVE ANY PRESSORS. BP BEING MONITORED AT THIS TIME, WILL HOLD OFF ON SCHEDULED BP MEDS FOR NOW. CURRENT BP 116/44.
--- NOTE | 2020-04-06 12:50 | NUR ---
PATIENT FINISHED LUNCH. STILL COMPLAINING OF PAIN TO HEAD. TYLENOL AND ANTIBIOTIC ADMINISTERED ORDERED. VITALS REMAIN STABLE. WILL CONTINUE TO MONITOR.
--- NOTE | 2020-04-06 14:33 | NUR ---
PATIENT APPEARS TO BE SLEEPING COMFORTABLY. NO SIGNS OF DISTRESS OR DISCOMFORT VISUALIZED. VITALS STABLE. IV FLUIDS INFUSING WITHOUT COMPLICATIONS. BED IN LOW POSITION. CALL LIGHT WITHIN REACH.
--- NOTE | 2020-04-06 16:47 | NUR ---
PATIENT RESTING SEMIFOWLERS IN BED, NO SIGNS OF DISTRESS. VITALS STABLE.
--- NOTE | 2020-04-06 18:19 | NUR ---
PATIENT ATE 75% OF MEAL. ADMINISTERED IV ANTIBIOTICS ORDERED. PATIENT WAS UP TO BEDSIDE COMMODE AND VOIDED WITHOUT COMPLICATIONS. CALL LIGHT WITHIN REACH. BED IN LOW POSITION. WARM BLANKET PROVIDED.
--- NOTE | 2020-04-06 19:15 | NUR ---
RECEIVED REPORT. BEDRESTING. DRESSING ON HEAD C/D/I. TALKATIVE. C/O HEAD PAIN.
--- NOTE | 2020-04-06 19:48 | NUR ---
IV VANCOMYCIN INITIATED RX AND PAIN MEDICATION GIVEN PER REQUEST. BEDRESTING. STATES SHE HAS HAD THE SENSATION OF BUGS CRAWLING IN HEAD BUT DOES NOT HAVE THAT FEELING AT THIS TIME
--- NOTE | 2020-04-06 21:30 | NUR ---
ADL'S WITH ASSIST WHILE UP TO BSC. TOOK HS MEDS-TOLERATED WELL. DRESSING ON HEAD REMAINS C/D/I. HAD SOME DISCOLORATION (WHICH APPEARED DRY BLOOD) ON LINENS. TOLERATED ACTIVITY WELL
--- NOTE | 2020-04-06 23:11 | NUR ---
BEDRESTING. LIGHTS AND TV OFF. N/C OR DISTRESS AT THIS TIME
[2020-04-07] VITALS (14 sets, daily range): BP systolic 100–156; BP diastolic 48–76
--- NOTE | 2020-04-07 | NUR ---
BEDRESTING. RESP EVEN AND NONLABORED. N/C VOICED AT THIS TIME
--- NOTE | 2020-04-07 01:57 | NUR ---
WOUND CARE CONSULT FAXED TO [facility], A MESSAGE LEFT ON THEIR ANSWERING MACHINE AND A RX PLACED IN THE ELECTRONIC CHART.
--- NOTE | 2020-04-07 02:44 | NUR ---
PAIN PILL FOR HEAD PAIN PER REQUEST. FRONT OFFICE ASSISTANT REPORTED PT SAID THERE WERE WORMS ON THE FLOOR THAT FELL OUT OF HER HEAD EARLIER TONIGHT. IT WAS FOOD
--- NOTE | 2020-04-07 04:19 | NUR ---
BEDRESTING. LIGHTS AND TV OFF. HAS REMOVED ALL ATTACHMENTS-B/P CUFF, SCD, MONITOR. ALL REPLACED BUT PT RESTLESS.
[2020-04-07 04:57] LABS: HEMATOCRIT 28.2 % (37.0-47.0); HEMOGLOBIN 8.8 g/dl (12.0-16.0); MEAN CELL VOLUME 87.9 fL CALC (80.0-100.0); MEAN CORPUSCULAR HGB 27.4 pG CALC (26.0-32.0); MEAN CORPUSCULAR HGB CONC 31.2 g/dL CAL (32.0-36.0); RED BLOOD COUNT 3.21 mill/uL (4.20-5.60); RED CELL DISTRI WIDTH 14.1 % (11.5-15.5)
[2020-04-07 05:15] LABS: ANION GAP 9 (6-22 (CALC)); BUN 9 mg/dL (8-23); BUN/CREATININE RATIO 14 (12-20 (CALC)); CARBON DIOXIDE 21 mmol/l (22-30); CHLORIDE 111 mmol/l (95-108); CREATININE 0.6 mg/dL (0.5-1.0); GFR > 60 ML/MIN (>=60 (CALC)); GFR FOR AFR.AMER. > 60 ML/MIN (>=60 (CALC)); POTASSIUM 3.8 mmol/l (3.5-5.1); SODIUM 137 mmol/l (137-146)
--- NOTE | 2020-04-07 07:30 | NUR ---
PT SITTING UP IN BED, A&0X3, ABLE TO MAKE NEEDS KNOWN. PT ST ON TELEMETRY, HR 100. PT DENIES CP, SOB OR DISTRESS AT THIS TIME. RESPIRATIONS EVEN/UNLABORED, SA02@97% RA. LS CLEAR THROUGHOUT. ABDOMEN SOFT NON-TENDER, BSX4 ACTIVE. DRSG TO L SCALP CDI, . ACCUCHECK 65. JUICE GIVEN. BILAT SCD'S IN PLACE. 20G TO LFA LEAKING, SITE DISCONTIUED WITHOUT DIFFICULTY. 20G TO LAC INFUSING NS@100ML/HR. CALL LIGHT IN REACH. WILL MONITOR.
--- NOTE | 2020-04-07 07:45 | NUR ---
DR. LUNDBERG AT BEDSIDE FOR ASSESSMENT AND TO DISCUSS PLAN OF CARE. NEW ORDERS RECICEVED.
--- NOTE | 2020-04-07 07:50 | NUR ---
DR. HUNT AT BEDSIDE FOR ASSESSMENT AND TO DISCUSS PLAN OF CARE. NEW ORDERS RECIEVED. WOUND CARE CONSULT PENDING.
--- NOTE | 2020-04-07 08:00 | NUR ---
DIETARY ON UNIT, BREAKFAST TRAY SET UP.
--- NOTE | 2020-04-07 08:15 | NUR ---
PT DRSG CHANGED, CLEANSED WITH NS, WET/DRY DRESSING, COVERED WITH 4X4 AND SECURED WITH KERLEX. PT TOLERATED WELL. CALL LIGHT IN REACH. WILL MONITOR.
--- NOTE | 2020-04-07 08:30 | NUR ---
DR. OLSEN FROM [facility] AT BEDSIDE FOR ASSESSMENT AND TO DISCUSS PLAN OF CARE, NEW ORDERS RECIEVED. DRESSING CHANGED ORDERED.
--- NOTE | 2020-04-07 08:40 | NUR ---
PT MEDICATED FOR PAIN 6/10 AT SCALP ORDERED PER PT REQUEST. WILL MONITOR.
--- NOTE | 2020-04-07 10:06 | NUR ---
PT RESTING IN BED WITH EYES CLOSED, DRESSING CDI. NO DISTRESS NOTED AT THIS TIME. CALL LIGHT IN REACH. WILL MONITOR.
--- NOTE | 2020-04-07 11:30 | NUR ---
PT ASSISTED TO BSC. THEN BACK TO BED. PT TOLERATED WELL.
--- NOTE | 2020-04-07 12:15 | NUR ---
pt assisted TO BATHROOM. THEN BACK TO BED. DRSG TO SCALP CDI. CALL LIGHT IN REACH. WILL MONITOR.
--- NOTE | 2020-04-07 14:09 | NUR ---
PT RESTING IN BED, EYES CLOSED/ TV ON/ NO DISTRESS NOTED AT THIS TIME.
--- NOTE | 2020-04-07 16:10 | NUR ---
PT CONTINUES TO STATE BURNING PAIN AT SCALP, DR. LUNDBERG NOTIFIED, NEW ORDER RECIEVED. PT MEDICATED ORDERED FOR SCALP PAIN 05/23 ORDERED PER PT REQUEST.
--- NOTE | 2020-04-07 18:00 | NUR ---
PT RESTING IN BED, STATED THAT THE PAIN MEDICATION HELPED, THAT THE "BURNING/STING" IS STILL THERE. CALL LIGHT IN REACH. WILL MONITOR.
--- NOTE | 2020-04-07 20:00 | NUR ---
PATIENT RESTING IN BED. PATIENT WITH NO SIGNS OF DISTRESS. [place]BUL[place] [facility] [place].
--- NOTE | 2020-04-07 20:20 | NUR ---
PT. C/O SCALP PAIN AND MEDICATED WITH ORDERD PRN LORTAB; WILL REASSESS.
--- NOTE | 2020-04-07 22:00 | NUR ---
PATIENTS VITALS STABLE. PATIENT WITH NO SIGNS OF DISTRESS. PATIENT RESTING IN BED.
[2020-04-08] VITALS (9 sets, daily range): BP systolic 138–183; BP diastolic 54–73
--- NOTE | 2020-04-08 | NUR ---
PATIENT WITH COMPLAINTS OF PAIN. PATIENT MEDICATED. PATIENT CONTINUES TO AMBULATED TO [facility] [place]. VITALS STABLE.
--- NOTE | 2020-04-08 02:00 | NUR ---
LEFT ARM SWOLLEN. IV REPLACE TO RIGHT ARM. PATIENT WITH NO COMPLAINTS. FLUIDS INFUSING. PATIENT VITALS STABLE. WILL CONTINUE TO MONITOR.
--- NOTE | 2020-04-08 04:00 | NUR ---
PATIENT WITH NO COMPLAINTS. VITALS STABLE. WILL CONTINUE TO MONITOR.
--- NOTE | 2020-04-08 06:00 | NUR ---
PATIENT RESTING IN BED. PATIENT RECEIVED PAIN MEDICATION. WILL CONTINUE TO MONITOR.
--- NOTE | 2020-04-08 06:45 | NUR ---
RECIEVED REPORT FROM BIGG IRELAND. ASSUMED PT CARE.
--- NOTE | 2020-04-08 08:00 | NUR ---
PT A&OX3, ABLE TO MAKE NEEDS KNOWN. PT DENIES CP, SOB OF DISTRESS AT THIS TIME. DRESSING TO SCALP CDI, PT SITTING UP IN BED, SR ON TELEMTERY, HR 72. RESPIRATIONS EVEN/UNLABORED, LS CLEAR THROUGHOUT, SA02@99%RA. ABDOMEN SOFT, NON-TENDER. BSX4 ACTIVE. CALL LIGHT IN REACH, WILL MONITOR.
--- NOTE | 2020-04-08 08:30 | NUR ---
DR. LUNDBERG AT BEDSIDE FOR ASSESSMENT AND TO DISCUSS PLAN OF CARE, NEW ORDERS RECIEVED.
--- NOTE | 2020-04-08 09:45 | NUR ---
PT ASSISTED TO BSC, BM. THEN BACK TO BED. CALL LIGHT IN REACH. WILL MONITOR.
--- NOTE | 2020-04-08 10:35 | NUR ---
DR. HUNT AT BEDSIDE FOR ASSESSMENT AND TO DISCUSS PLAN OF CARE . NO NEW ORDERS NOTED AT THIS TIME.
--- NOTE | 2020-04-08 13:30 | NUR ---
RAFAELA FROM CM AT BEDSIDE FOR ASSESSMENT AND TO DISCUSS POC AND HH OPTIONS.
--- NOTE | 2020-04-08 13:33 | NUR ---
S: SARATH JUAREZ is a 69 F who presents with Abscess of Scalp. She has a history of hysterectomy, diabetes mellitus, asthma, arthritis, fibromyalgia osteoporosis, glaucoma, neuropathy, cholesterol, and depression, and cerebrovascular accident. All medications in patient's chart were reviewed. O: Trough is 5 ug/mL on 04/07/2020 VS: BP 183/61 mmHg, P 82 bpm, RR 18 breaths/minute, T 97.3 F W 50.009 kg, HT 149.86 cm, Scr= 1 mg/dL, CrCl= 42.5 ml/min A: Blood culture is pending. P: Patient is on Zosyn 3.375g IV Q6H. Vancomycin ordered for pharmacy to dose. Increased Vancomycin to 500 mg IV Q12H. Vancomycin trough is drawn before the 4th dose on 04/09/20202029. Vancomycin goal trough is between 10-15 mcg/ml. Pharmacy will follow and or advise on antibiotics use as needed.
--- NOTE | 2020-04-08 14:04 | NUR ---
PT UP TO BSC, THEN BACK TO BED.
--- NOTE | 2020-04-08 14:54 | NUR ---
SPOKE WITH [facility], MED LIST IS FOLLOWS: AMLODIPINE 10MG PO DAILY SIMVASTATIN 40MG PO DAILY TRIAMTERINE-HCTZ 37.5MG-25MG TABS PO DAILY ASPIRIN 81MG PO DAILY BENAZEPRIL 40MG PO DAILY HUMALOG 8 UNITS SC B4 EACH MEAL
--- NOTE | 2020-04-08 15:00 | NUR ---
IV site discontinued, cath intact. No edema , no redness, voices no discomfort.
[2020-04-08] MEDS ORDERED: SIMVASTATIN40 MG PO (15:33)
[2020-04-08] MEDS ORDERED: AMLODIPINE BESY10 MG PO (15:33)
[2020-04-08] MEDS ORDERED: ASPIRIN ADULT L81 M2 PO (15:34)
[2020-04-08] MEDS ORDERED: HUMALOG100 UNIT/M SC (15:34)
[2020-04-08] MEDS ORDERED: MAXZIDE-2537.5 MG/TA PO (15:34)
[2020-04-08] MEDS ORDERED: BENAZEPRIL40 M1 PO (15:34)
[2020-04-08] MEDS ORDERED: AMOX/K CLAV875 M1 PO (15:36)
[2020-04-08] MEDS ORDERED: DOXYCYCL HYC100 MG PO (15:36)
[2020-04-08] MEDS ORDERED: LEVEMIR FL100 UNIT/M SC (15:36)
[2020-04-08] MEDS ORDERED: LORTAB 7.57.5 MG PO (15:38)
--- NOTE | 2020-04-08 15:55 | NUR ---
Discharge instructions given. Patient verbalizes understanding of same. Discharged in stable condition via Wheelchair to Home with family. All belongings sent with pt. PRESCRIPTIONS SENT TO [facility], [facility] TO F/U WITH PT.
== END 2020-04-08 15:55 | DRG 581 ==
LOC: ED 17:59 → ED-I 19:48 → ED 20:19 → ICU 20:20
PROVIDERS: Emergency Medicine; ADMIT Internal Medicine; ATTEND Internal Medicine
PROC: 0KD Muscles, Extraction (ICD-10-PCS; principal; 2020-04-06)
DX: L02.811 Cutaneous abscess of head [any part, except face] (principal); E11.65 Type 2 diabetes mellitus with hyperglycemia; I10 Essential (primary) hypertension; J44.9 Chronic obstructive pulmonary disease, unspecified; E11.40 Type 2 diabetes mellitus with diabetic neuropathy, unspecified; E78.5 Hyperlipidemia, unspecified; I16.0 Hypertensive urgency; F20.9 Schizophrenia, unspecified; D64.9 Anemia, unspecified; F32.9 Major depressive disorder, single episode, unspecified; F17.200 Nicotine dependence, unspecified, uncomplicated; Z86.73 Personal history of transient ischemic attack (TIA), and cerebral infarction without residual deficits; Z79.4 Long term (current) use of insulin; Z91.14 Patient's other noncompliance with medication regimen; Z11.59 Encounter for screening for other viral diseases
CPT/HCPCS: J0131; J1650; J3370

== ENCOUNTER 2020-07-27 13:07 | Inpatient (IN) | payer MEDICARE, MEDICAID ==
[~2020-07-27] VITALS: Ht 149.9 cm; Wt 50.0 kg
[~2020-07-27 13:07] MED LIST changes: +AMLODIPINE BESY10 MG PO; +AMOX/K CLAV875 M1 PO; +ASPIRIN ADULT L81 M2 PO; +DOXYCYCL HYC100 MG PO; +HUMALOG100 UNIT/M SC; +LEVEMIR FL100 UNIT/M SC; +LORTAB 7.57.5 MG PO
[2020-07-27 14:02] LABS: HEMATOCRIT 35.4 % (37.0-47.0); HEMOGLOBIN 11.8 g/dl (12.0-16.0); IMMATURE GRANULOCYTES 0.9 % (0.0-5.0); MEAN CELL VOLUME 77.3 fL CALC (80.0-100.0); MEAN CORPUSCULAR HGB 25.8 pG CALC (26.0-32.0); MEAN CORPUSCULAR HGB CONC 33.3 g/dL CAL (32.0-36.0); NEUT# 23.52 thou/uL (2.00-7.15); RED BLOOD COUNT 4.58 mill/uL (4.20-5.60); RED CELL DISTRI WIDTH 14.3 % (11.5-15.5)
[2020-07-27 14:18] LABS: ALBUMIN 3.3 g/dL (3.2-5.0); BILIRUBIN, TOTAL 0.4 mg/dL (0.0-1.4); BUN 19 mg/dL (8-23); BUN/CREATININE RATIO 24 (12-20 (CALC)); CREATININE 0.8 mg/dL (0.5-1.0); GFR > 60 ML/MIN (>=60 (CALC)); GFR FOR AFR.AMER. > 60 ML/MIN (>=60 (CALC)); POTASSIUM 3.4 mmol/l (3.5-5.1); SGOT/AST 18 u/l (9-36); SODIUM 133 mmol/l (137-146); TOTAL PROTEIN 7.2 g/dL (6.3-8.2)
[2020-07-27 14:23] LABS: ALKALINE PHOSPHATASE 227 u/l (38-126); ANION GAP 12 (6-22 (CALC)); CARBON DIOXIDE 32 mmol/l (22-30); CHLORIDE 92 mmol/l (95-108)
[2020-07-27 15:43] LABS: URINE BILIRUBIN - DIPSTICK NEGATIVE (NEGATIVE); URINE BLOOD DIPSTICK SMALL (NEGATIVE); URINE COLOR YELLOW; URINE GLUCOSE - DIPSTICK >=1000 mg/dL (NEGATIVE); URINE KETONE NEGATIVE (NEGATIVE); URINE LEUK ESTERASE NEGATIVE (NEGATIVE); URINE NITRITE - DIPSTICK NEGATIVE (Negative); URINE PROTEIN - DIPSTICK 100 mg/dL (NEG-TRACE); URINE SPECIFIC GRAVITY 1.015; URINE UROBILINOGEN - DIPSTICK 0.2 E.U./dL (0.2)
[2020-07-27 15:53] LABS: URINE WBC 0-2 WBC/hpf (0-5)
[2020-07-27 21:20] VITALS: BP 135/55
[2020-07-27 23:59] VITALS: BP 141/56
[2020-07-28 04:01] VITALS: BP 149/56
[2020-07-28 06:58] LABS: CHOLESTEROL HDL RATIO 4.5 (<4.4 (CALC)); MAGNESIUM 1.9 mg/dL (1.6-2.3)
[2020-07-28 08:30] VITALS: BP 165/61
[2020-07-28] MEDS ORDERED: LEVEMIR FL100 UNIT/M SC (12:57)
[2020-07-28 16:55] VITALS: BP 151/73
[2020-07-28 19:31] VITALS: BP 122/52
[2020-07-29] VITALS (14 sets, daily range): BP systolic 111–180; BP diastolic 42–83
[2020-07-29 06:36] LABS: HEMATOCRIT 34.1 % (37.0-47.0); HEMOGLOBIN 10.9 g/dl (12.0-16.0); MEAN CELL VOLUME 79.5 fL CALC (80.0-100.0); MEAN CORPUSCULAR HGB 25.4 pG CALC (26.0-32.0); RED BLOOD COUNT 4.29 mill/uL (4.20-5.60); RED CELL DISTRI WIDTH 14.3 % (11.5-15.5)
[2020-07-29 07:10] LABS: ANION GAP 13 (6-22 (CALC)); BUN 10 mg/dL (8-23); BUN/CREATININE RATIO 15 (12-20 (CALC)); CARBON DIOXIDE 27 mmol/l (22-30); CHLORIDE 102 mmol/l (95-108); CREATININE 0.7 mg/dL (0.5-1.0); GFR > 60 ML/MIN (>=60 (CALC)); GFR FOR AFR.AMER. > 60 ML/MIN (>=60 (CALC)); MAGNESIUM 1.8 mg/dL (1.6-2.3); POTASSIUM 3.3 mmol/l (3.5-5.1); SODIUM 138 mmol/l (137-146)
[2020-07-30 03:47] VITALS: BP 130/59
[2020-07-30 05:24] LABS: HEMATOCRIT 28.7 % (37.0-47.0); HEMOGLOBIN 9.1 g/dl (12.0-16.0); IMMATURE GRANULOCYTES 1.2 % (0.0-5.0); MEAN CELL VOLUME 79.1 fL CALC (80.0-100.0); MEAN CORPUSCULAR HGB 25.1 pG CALC (26.0-32.0); MEAN CORPUSCULAR HGB CONC 31.7 g/dL CAL (32.0-36.0); NEUT# 15.76 thou/uL (2.00-7.15); RED BLOOD COUNT 3.63 mill/uL (4.20-5.60); RED CELL DISTRI WIDTH 14.2 % (11.5-15.5)
[2020-07-30 05:47] LABS: ALKALINE PHOSPHATASE 177 u/l (38-126); ANION GAP 6 (6-22 (CALC)); BILIRUBIN, TOTAL 0.3 mg/dL (0.0-1.4); BUN 9 mg/dL (8-23); BUN/CREATININE RATIO 15 (12-20 (CALC)); CARBON DIOXIDE 27 mmol/l (22-30); CHLORIDE 107 mmol/l (95-108); CREATININE 0.6 mg/dL (0.5-1.0); GFR > 60 ML/MIN (>=60 (CALC)); GFR FOR AFR.AMER. > 60 ML/MIN (>=60 (CALC)); POTASSIUM 3.4 mmol/l (3.5-5.1); SGOT/AST 27 u/l (9-36); SODIUM 136 mmol/l (137-146)
[2020-07-30 05:50] LABS: ALBUMIN 2.3 g/dL (3.2-5.0); TOTAL PROTEIN 5.4 g/dL (6.3-8.2)
[2020-07-30 08:03] VITALS: BP 153/52
[2020-07-30 10:48] VITALS: BP 147/45
[2020-07-30 14:55] VITALS: BP 149/85
[2020-07-30 19:10] VITALS: BP 167/54
[2020-07-31] VITALS (10 sets, daily range): BP systolic 130–199; BP diastolic 34–101
[2020-07-31 06:23] LABS: HEMOGLOBIN 8.8 g/dl (12.0-16.0); MEAN CELL VOLUME 80.2 fL CALC (80.0-100.0); MEAN CORPUSCULAR HGB 25.2 pG CALC (26.0-32.0); MEAN CORPUSCULAR HGB CONC 31.4 g/dL CAL (32.0-36.0); RED BLOOD COUNT 3.49 mill/uL (4.20-5.60); RED CELL DISTRI WIDTH 14.6 % (11.5-15.5)
[2020-07-31 06:25] LABS: ANION GAP 9 (6-22 (CALC)); BUN 10 mg/dL (8-23); BUN/CREATININE RATIO 17 (12-20 (CALC)); CARBON DIOXIDE 27 mmol/l (22-30); CHLORIDE 107 mmol/l (95-108); CREATININE 0.6 mg/dL (0.5-1.0); GFR > 60 ML/MIN (>=60 (CALC)); GFR FOR AFR.AMER. > 60 ML/MIN (>=60 (CALC)); MAGNESIUM 1.8 mg/dL (1.6-2.3); POTASSIUM 3.2 mmol/l (3.5-5.1); SODIUM 140 mmol/l (137-146)
[2020-07-31] MEDS ORDERED: DALVANCE500 MG IV (10:17)
[2020-08-01 04:00] VITALS: BP 169/64
[2020-08-01 05:02] LABS: HEMATOCRIT 27.6 % (37.0-47.0); HEMOGLOBIN 8.7 g/dl (12.0-16.0); IMMATURE GRANULOCYTES 1.3 % (0.0-5.0); MEAN CELL VOLUME 80.2 fL CALC (80.0-100.0); MEAN CORPUSCULAR HGB 25.3 pG CALC (26.0-32.0); MEAN CORPUSCULAR HGB CONC 31.5 g/dL CAL (32.0-36.0); NEUT# 8.74 thou/uL (2.00-7.15); RED BLOOD COUNT 3.44 mill/uL (4.20-5.60); RED CELL DISTRI WIDTH 14.8 % (11.5-15.5)
[2020-08-01 05:19] LABS: ALBUMIN 2.5 g/dL (3.2-5.0); ALKALINE PHOSPHATASE 191 u/l (38-126); ANION GAP 10 (6-22 (CALC)); BUN 8 mg/dL (8-23); BUN/CREATININE RATIO 16 (12-20 (CALC)); CARBON DIOXIDE 27 mmol/l (22-30); CHLORIDE 108 mmol/l (95-108); CREATININE 0.5 mg/dL (0.5-1.0); GFR > 60 ML/MIN (>=60 (CALC)); GFR FOR AFR.AMER. > 60 ML/MIN (>=60 (CALC)); POTASSIUM 3.8 mmol/l (3.5-5.1); SGOT/AST 28 u/l (9-36); SODIUM 141 mmol/l (137-146); TOTAL PROTEIN 5.7 g/dL (6.3-8.2)
[2020-08-01 05:21] LABS: BILIRUBIN, TOTAL 0.1 mg/dL (0.0-1.4)
[2020-08-01 07:50] VITALS: BP 166/64
[2020-08-01 11:00] VITALS: BP 180/83
[2020-08-01 15:00] VITALS: BP 157/64
[2020-08-01 20:00] VITALS: BP 166/74
[2020-08-02] VITALS (7 sets, daily range): BP systolic 138–208; BP diastolic 42–79
[2020-08-02 05:22] LABS: HEMOGLOBIN 10.1 g/dl (12.0-16.0); MEAN CELL VOLUME 81.1 fL CALC (80.0-100.0); MEAN CORPUSCULAR HGB 24.8 pG CALC (26.0-32.0); MEAN CORPUSCULAR HGB CONC 30.6 g/dL CAL (32.0-36.0); RED BLOOD COUNT 4.07 mill/uL (4.20-5.60)
[2020-08-02 05:44] LABS: ANION GAP 10 (6-22 (CALC)); BUN 9 mg/dL (8-23); BUN/CREATININE RATIO 14 (12-20 (CALC)); CARBON DIOXIDE 30 mmol/l (22-30); CHLORIDE 105 mmol/l (95-108); CREATININE 0.6 mg/dL (0.5-1.0); GFR > 60 ML/MIN (>=60 (CALC)); GFR FOR AFR.AMER. > 60 ML/MIN (>=60 (CALC)); POTASSIUM 4.1 mmol/l (3.5-5.1); SODIUM 141 mmol/l (137-146)
[2020-08-03 04:00] VITALS: BP 148/64
[2020-08-03 05:24] LABS: HEMATOCRIT 28.3 % (37.0-47.0); HEMOGLOBIN 8.8 g/dl (12.0-16.0); MEAN CORPUSCULAR HGB 25.5 pG CALC (26.0-32.0); MEAN CORPUSCULAR HGB CONC 31.1 g/dL CAL (32.0-36.0); RED BLOOD COUNT 3.45 mill/uL (4.20-5.60); RED CELL DISTRI WIDTH 15.1 % (11.5-15.5)
[2020-08-03 05:47] LABS: ANION GAP 10 (6-22 (CALC)); BUN 11 mg/dL (8-23); BUN/CREATININE RATIO 17 (12-20 (CALC)); CARBON DIOXIDE 29 mmol/l (22-30); CHLORIDE 104 mmol/l (95-108); CREATININE 0.6 mg/dL (0.5-1.0); GFR > 60 ML/MIN (>=60 (CALC)); GFR FOR AFR.AMER. > 60 ML/MIN (>=60 (CALC)); POTASSIUM 4.3 mmol/l (3.5-5.1); SODIUM 138 mmol/l (137-146)
[2020-08-03 07:38] VITALS: BP 166/56
[2020-08-03 10:30] VITALS: BP 170/57
[2020-08-03 15:00] VITALS: BP 144/63
[2020-08-03 20:00] VITALS: BP 184/59
[2020-08-04 04:00] VITALS: BP 135/54
[2020-08-04 07:00] VITALS: BP 186/62
[2020-08-04] MEDS ORDERED: LEVEMIR100 UNIT/M SC ×2 (13:31→13:35)
[2020-08-04] MEDS ORDERED: HUMALOG100 MG/ML SC (13:34)
[2020-08-04] MEDS ORDERED: COZAAR25 MG PO (13:37)
[2020-08-04] MEDS ORDERED: AMLODIPINE BESY10 MG PO (13:37)
[2020-08-04] MEDS ORDERED: HYDROCHLOROT25 MG PO (13:37)
[2020-08-04 14:20] VITALS: BP 170/68
== END 2020-08-04 14:27 | disposition home or self-care (01) | DRG 854 ==
LOC: ED 13:07 → ED-I 17:00 → ED 17:26 → MS2 17:27
PROVIDERS: Family Medicine; Nurse Practitioner; ADMIT Internal Medicine; ATTEND Internal Medicine
PROC: 0J940ZZ Drainage of Right Neck Subcutaneous Tissue and Fascia, Open Approach (ICD-10-PCS; principal; 2020-07-29)
PROC: 0H90XZZ Drainage of Scalp Skin, External Approach (ICD-10-PCS; 2020-07-29)
PROC: 0H90XZZ Drainage of Scalp Skin, External Approach (ICD-10-PCS; 2020-07-29)
PROC: 0H90XZZ Drainage of Scalp Skin, External Approach (ICD-10-PCS; 2020-07-29)
PROC: 0H90XZZ Drainage of Scalp Skin, External Approach (ICD-10-PCS; 2020-07-29)
PROC: 0JB40ZZ Excision of Right Neck Subcutaneous Tissue and Fascia, Open Approach (ICD-10-PCS; 2020-07-31)
PROC: 0HB0XZZ Excision of Scalp Skin, External Approach (ICD-10-PCS; 2020-07-31)
DX: A41.9 Sepsis, unspecified organism (principal); L02.11 Cutaneous abscess of neck; L02.811 Cutaneous abscess of head [any part, except face]; B95.62 Methicillin resistant Staphylococcus aureus infection as the cause of diseases classified elsewhere; E87.6 Hypokalemia; E11.65 Type 2 diabetes mellitus with hyperglycemia; D47.3 Essential (hemorrhagic) thrombocythemia; I10 Essential (primary) hypertension; J44.9 Chronic obstructive pulmonary disease, unspecified; J45.909 Unspecified asthma, uncomplicated; E78.5 Hyperlipidemia, unspecified; E11.40 Type 2 diabetes mellitus with diabetic neuropathy, unspecified; F20.9 Schizophrenia, unspecified; F32.9 Major depressive disorder, single episode, unspecified; F15.10 Other stimulant abuse, uncomplicated; M79.7 Fibromyalgia; M81.0 Age-related osteoporosis without current pathological fracture; M19.90 Unspecified osteoarthritis, unspecified site; H40.9 Unspecified glaucoma; F17.210 Nicotine dependence, cigarettes, uncomplicated; Z20.828 Contact with and (suspected) exposure to other viral communicable diseases; Z91.14 Patient's other noncompliance with medication regimen; Z79.4 Long term (current) use of insulin; Z79.82 Long term (current) use of aspirin; Z79.891 Long term (current) use of opiate analgesic; Z79.899 Other long term (current) drug therapy; Z86.73 Personal history of transient ischemic attack (TIA), and cerebral infarction without residual deficits
CPT/HCPCS: J0131; J0692; J1650; J3370; Q3014

== ENCOUNTER 2021-03-25 16:24 | Observation (INO) | payer MEDICARE, MEDICAID ==
[~2021-03-25] VITALS: Ht 149.9 cm; Wt 48.0 kg
[~2021-03-25 16:24] MED LIST changes: +COZAAR25 MG PO; +DALVANCE500 MG IV; +HUMALOG100 MG/ML SC; +LEVEMIR100 UNIT/M SC
[2021-03-25 18:58] LABS: HEMATOCRIT 29.2 % (37.0-47.0); HEMOGLOBIN 9.1 g/dl (12.0-16.0); IMMATURE GRANULOCYTES 0.4 % (0.0-5.0); MEAN CORPUSCULAR HGB 27.2 pG CALC (26.0-32.0); MEAN CORPUSCULAR HGB CONC 31.2 g/dL CAL (32.0-36.0); NEUT# 9.32 thou/uL (2.00-7.15); RED BLOOD COUNT 3.35 mill/uL (4.20-5.60); RED CELL DISTRI WIDTH 13.2 % (11.5-15.5)
[2021-03-25 18:59] LABS: MEAN CELL VOLUME 87.2 fL CALC (80.0-100.0)
[2021-03-25 19:10] LABS: ALBUMIN 2.8 g/dL (3.2-5.0); BUN 18 mg/dL (8-23); BUN/CREATININE RATIO 21 (12-20 (CALC)); CARBON DIOXIDE 24 mmol/l (22-30); CHLORIDE 110 mmol/l (95-108); CREATININE 0.9 mg/dL (0.5-1.0); GFR > 60 ML/MIN (>=60 (CALC)); GFR FOR AFR.AMER. > 60 ML/MIN (>=60 (CALC)); SGOT/AST 16 u/l (9-36); SODIUM 141 mmol/l (137-146); TOTAL PROTEIN 5.8 g/dL (6.3-8.2)
[2021-03-25 19:18] LABS: ALKALINE PHOSPHATASE 67 u/l (38-126); ANION GAP 10 (6-22 (CALC)); POTASSIUM 2.9 mmol/l (3.5-5.1)
[2021-03-25 23:27] LABS: URINE BILIRUBIN - DIPSTICK NEGATIVE (NEGATIVE); URINE BLOOD DIPSTICK NEGATIVE (NEGATIVE); URINE COLOR YELLOW; URINE GLUCOSE - DIPSTICK >=1000 mg/dL (NEGATIVE); URINE KETONE NEGATIVE (NEGATIVE); URINE LEUK ESTERASE NEGATIVE (NEGATIVE); URINE PH 6.5 (4.5-8.0); URINE PROTEIN - DIPSTICK 100 mg/dL (NEG-TRACE); URINE UROBILINOGEN - DIPSTICK 0.2 E.U./dL (0.2)
[2021-03-25 23:28] LABS: URINE NITRITE - DIPSTICK NEGATIVE (Negative)
[2021-03-25 23:51] LABS: URINE BACTERIA FEW hpf; URINE RBC 0-2 RBC/hpf (0-5); URINE SQUAMOUS EPITHELIAL CELL MANY EPI/hpf (0-FEW); URINE WBC 0-2 WBC/hpf (0-5)
[2021-03-26 06:33] LABS: HEMATOCRIT 31.7 % (37.0-47.0); HEMOGLOBIN 10.1 g/dl (12.0-16.0); MEAN CELL VOLUME 84.8 fL CALC (80.0-100.0); MEAN CORPUSCULAR HGB CONC 31.9 g/dL CAL (32.0-36.0); RED BLOOD COUNT 3.74 mill/uL (4.20-5.60)
[2021-03-26 06:36] LABS: PLATELET COUNT 485 thou/uL (130-400)
[2021-03-26 06:40] LABS: ANION GAP 9 (6-22 (CALC)); BUN 16 mg/dL (8-23); BUN/CREATININE RATIO 21 (12-20 (CALC)); CALCULATED LDLCHOLESTEROL 60 mg/dL (62-129 (CALC)); CARBON DIOXIDE 26 mmol/l (22-30); CHLORIDE 105 mmol/l (95-108); CHOLESTEROL HDL RATIO 2.3 (<4.4 (CALC)); CREATININE 0.8 mg/dL (0.5-1.0); GFR > 60 ML/MIN (>=60 (CALC)); GFR FOR AFR.AMER. > 60 ML/MIN (>=60 (CALC)); HDL CHOLESTEROL 59 mg/dL (>=40); MAGNESIUM 2.1 mg/dL (1.6-2.3); SODIUM 136 mmol/l (137-146); TOTAL CHOLESTEROL 137 mg/dl (0-199); TOTAL TRIGLYCERIDES 90 mg/dl (30-149); VLDL CHOLESTROL 18 mg/dl (1-41 (CALC))
[2021-03-26 07:50] VITALS: BP 112/49
[2021-03-26] MEDS ORDERED: ASPIRIN 81 LOW81 MG PO (09:21)
[2021-03-26] MEDS ORDERED: LIPITOR10 M1 PO (09:22)
== END 2021-03-26 11:50 | disposition home or self-care (01) ==
LOC: ED 16:24 → ED-I 19:40 → ED 19:51 → ED-I 19:52
PROVIDERS: Family Medicine; Nurse Practitioner; ADMIT Internal Medicine; ATTEND Internal Medicine
DX: G93.41 Metabolic encephalopathy (principal); F15.10 Other stimulant abuse, uncomplicated; E87.6 Hypokalemia; E11.65 Type 2 diabetes mellitus with hyperglycemia; I10 Essential (primary) hypertension; E11.40 Type 2 diabetes mellitus with diabetic neuropathy, unspecified; J45.909 Unspecified asthma, uncomplicated; M19.90 Unspecified osteoarthritis, unspecified site; J44.9 Chronic obstructive pulmonary disease, unspecified; E78.5 Hyperlipidemia, unspecified; F32.9 Major depressive disorder, single episode, unspecified; H40.9 Unspecified glaucoma; F17.200 Nicotine dependence, unspecified, uncomplicated; Z91.14 Patient's other noncompliance with medication regimen; Z79.4 Long term (current) use of insulin; Z86.73 Personal history of transient ischemic attack (TIA), and cerebral infarction without residual deficits; Z20.822 Contact with and (suspected) exposure to COVID-19
CPT/HCPCS: J1650; Q9967